=== PATIENT | male | born 1935 | race Caucasian/White ===

== ENCOUNTER 2020-03-03 19:01 | Inpatient (IN) | payer BC ==
[~2020-03-03] VITALS: Ht 167.6 cm; Wt 55.4 kg
[~2020-03-03 19:01] MED LIST: NITROFURANTOIN100 M2 ORAL
[2020-03-03 19:03] VITALS: BP 134/70
--- NOTE | 2020-03-03 19:03 | NUR ---
ED Nurse Note: Patient brought in by ambulance from home with complaitns of recent frequent falls. Patient notes decreased apetite and difficulty standing up. Patient lives with at home.
--- NOTE | 2020-03-03 19:23 | NUR ---
ED Nurse Note: IV started at left AC 20G. Blood specimen collected and sent to lab. Will continue to monitor.
--- NOTE | 2020-03-03 19:27 | Emergency Room Report ---
History of Present Illness General Chief Complaint: Generalized Weakness Source: Patient Present Illness HPI 85-year-old male presents for generalized weakness. Patient states for the past week he has been unable to complete his ADLs unable to walk around his house. He reports that his appetite has been decreased. He denied any fever but was febrile on EMS arrival. They report that his apartment was warm. Patient does report thirst on arrival. Patient was seen last week for urinary retention and had Ureña catheter placed. Patient denies any pain on arrival. Allergies: Coded Allergies: No Known Allergies (Unverified , 02/24/20) COVID-19 Screening Contact w/high risk pt: No Recent Travel to affected area: No Experienced COVID-19 symptoms?: Yes COVID-19 symptoms experienced: Fever (T>100.4F or >38C) COVID-19 Testing performed PEDIATRIC NURSE PRACTITIONER: No Patient History Reviewed Nursing Documentation: PMH: Agreed; PSxH: Agreed Review of Systems All Other Systems: negative except mentioned in HPI Physical Exam Vital Signs Date Time Temp Pulse Resp B/P (MAP) Pulse Ox O2 Delivery O2 Flow Rate FiO2 03/03/20 18:54 97.9 90 18 134/70 (91) 98 Room Air Sp02 EP Interpretation: reviewed, normal General Appearance: no apparent distress, cachetic, thin Head: normocephalic, atraumatic Eyes: bilateral eye PERRL, bilateral eye EOMI ENT: hearing grossly normal, dry mucus membranes Neck: full range of motion, supple Respiratory: lungs clear, normal breath sounds, no rhonchi, no respiratory distress, no retraction, no wheezing Cardiovascular #1: normal peripheral pulses, regular rate, rhythm, no murmur Gastrointestinal: non tender, soft, non-distended, no guarding Neurologic: alert, oriented x3, no focal defects Skin: normal color, warm/dry Medical Decision Making ER Course 85-year-old male presents for generalized weakness. Differential included but not limited to failure to thrive, dehydration, heat exhaustion, urinary tract infection, other infectious process to name a few. On exam patient was alert and oriented with no focal neurologic deficits. Septic work-up initiated, IV fluids given. Last Vital Signs Date Time Temp Pulse Resp B/P (MAP) Pulse Ox O2 Delivery O2 Flow Rate FiO2 03/03/20 18:54 97.9 90 18 134/70 (91) 98 Room Air Disposition: ADMITTED INPATIENT Condition: Serious Referrals: NON PHYSICIAN (PCP) Jonh Fuentes M.D. March 03, 2020 19:27
[2020-03-03 19:40] LABS: BASOPHILS % (AUTO) 0.8 % (0.0-2.0); HEMATOCRIT 44.4 % (42.0-52.0); HEMOGLOBIN 14.6 G/DL (14.2-18.0); LYMPHOCYTES % (AUTO) 11.8 % (20.0-45.0); MEAN CORPUSCULAR VOLUME 100 FL (80-99); MONOCYTES % (AUTO) 9.6 % (1.0-10.0); NEUTROPHILS % (AUTO) 77.8 % (45.0-75.0); PLATELET COUNT 166 K/UL (150-450); RED BLOOD COUNT 4.42 M/UL (4.70-6.10); RED CELL DISTRIBUTION WIDTH 12.2 % (11.6-14.8); WHITE BLOOD COUNT 10.2 K/UL (4.8-10.8)
[2020-03-03 19:54] LABS: ANION GAP 10 mmol/L (5-15); BLOOD UREA NITROGEN 55 mg/dL (7-18); CALCIUM 8.9 MG/DL (8.5-10.1); CARBON DIOXIDE 25 MMOL/L (21-32); CHLORIDE 103 MMOL/L (98-107); CREATININE 2.1 MG/DL (0.55-1.30); POTASSIUM 3.8 MMOL/L (3.5-5.1); SODIUM 138 MMOL/L (136-145)
[2020-03-03 20:07] LABS: ALANINE AMINOTRANSFERASE 46 U/L (12-78); ALBUMIN 2.9 G/DL (3.4-5.0); ALBUMIN/GLOBULIN RATIO 0.6 (1.0-2.7); ALKALINE PHOSPHATASE 63 U/L (46-116); ASPARTATE AMINO TRANSFERASE 73 U/L (15-37); BILIRUBIN,TOTAL 0.7 MG/DL (0.2-1.0); CKMB < 0.5 NG/ML (0.0-3.6); CREATINE KINASE 165 U/L (26-308)
--- NOTE | 2020-03-03 21:01 | NUR ---
ED Nurse Note: IV at left AC in dependent position. IV fluids still running, will draw reflex as soon as patient received 1700ml of N/S.
--- NOTE | 2020-03-03 21:09 | NUR ---
ED Nurse Note: Spoke with patient's daughter, Tita, maxiom. Relayed plan of care. Contact for daughter: FLORINA#: [phone]
[2020-03-03 21:14] LABS: APPEARANCE,URINE VERY CLOUDY; BILIRUBIN, URINE NEGATIVE (NEGATIVE); COLOR,URINE AMBER; GLUCOSE, URINE (UA) NEGATIVE (NEGATIVE); KETONES,URINE NEGATIVE (NEGATIVE); LEUKOCYTE ESTERASE ,URINE 3+ (NEGATIVE); NITRITE,URINE NEGATIVE (NEGATIVE); PH,URINE 5 (4.5-8.0); PROTEIN,URINE 3+ (NEGATIVE); UROBILINOGEN,URINE NORMAL MG/DL (0.0-1.0)
[2020-03-03] MEDS ORDERED: cefTRIAXone 1 GM in NS 55 ML IVPB ONE (21:45)
--- NOTE | 2020-03-03 21:49 | NUR ---
ED Nurse Note: IV atnibiotic hung. IV N/S 600cc to completion of order.
[2020-03-03] MEDS ORDERED: Milk of Magnesia 30ml Ud ORAL PRN (22:30)
--- NOTE | 2020-03-03 22:48 | NUR ---
ED Nurse Note: Called report into Dee Deea RN.
--- NOTE | 2020-03-03 22:50 | NUR ---
ED Nurse Note: Patient belongings sheet completed. Patient able to sign. No valuables, only clothing.
--- NOTE | 2020-03-03 22:50 | NUR ---
NURSE NOTES: Received ED report from HARITHA Goldberg. Pt transported via stretcher. pt is AAOX3, some forgetfulness noted, pt is cooperative and responds appropriately to assessment questions. c/o generalized weakness and generalized body aches and fatigue. Admitted from home w/ le cath in place. pt stated had the le cath changed 5 days ago prior to coming to ED by his [facility] nurse that regularly visits through [facility] service. ER nurse changed urinary bag upon arrival to ED. IV to RAC intact/clean. will f/u IVF and scheduled Zosyn. oriented to room, call light provided, bed alarm on. Instructed to call for assistance anytime. VSS
--- NOTE | 2020-03-03 22:52 | NUR ---
ED Nurse Note: Patient transported to floor without incident by electronics tech.
[2020-03-03 23:11] VITALS: BP 134/84
[2020-03-03] MEDS: Piperacillin/Tazobactam 3.375 GM in NS 110 ML IVPB SCH (23:42)
[2020-03-04 04:00] VITALS: BP 108/67
[2020-03-04] MEDS: Piperacillin/Tazobactam 3.375 GM in NS 110 ML IVPB SCH ×3 (06:14→22:36)
[2020-03-04 06:46] LABS: ANION GAP 11 mmol/L (5-15); BASOPHILS % (AUTO) 0.5 % (0.0-2.0); BLOOD UREA NITROGEN 48 mg/dL (7-18); CALCIUM 7.9 MG/DL (8.5-10.1); CARBON DIOXIDE 22 MMOL/L (21-32); CHLORIDE 107 MMOL/L (98-107); CREATININE 1.7 MG/DL (0.55-1.30); EOSINOPHILS % (AUTO) 0.1 % (0.0-3.0); HEMATOCRIT 36.5 % (42.0-52.0); HEMOGLOBIN 13.4 G/DL (14.2-18.0); LYMPHOCYTES % (AUTO) 14.9 % (20.0-45.0); MEAN CORPUSCULAR VOLUME 93 FL (80-99); NEUTROPHILS % (AUTO) 76.5 % (45.0-75.0); PLATELET COUNT 118 K/UL (150-450); POTASSIUM 3.3 MMOL/L (3.5-5.1); RED BLOOD COUNT 3.92 M/UL (4.70-6.10); RED CELL DISTRIBUTION WIDTH 10.9 % (11.6-14.8); SODIUM 140 MMOL/L (136-145); WHITE BLOOD COUNT 9.6 K/UL (4.8-10.8)
[2020-03-04 06:51] LABS: ALANINE AMINOTRANSFERASE 37 U/L (12-78); ALBUMIN 2.2 G/DL (3.4-5.0); ALBUMIN/GLOBULIN RATIO 0.6 (1.0-2.7); ALKALINE PHOSPHATASE 51 U/L (46-116); ASPARTATE AMINO TRANSFERASE 62 U/L (15-37); BILIRUBIN,TOTAL 0.7 MG/DL (0.2-1.0)
--- NOTE | 2020-03-04 07:31 | NUR ---
NURSE NOTES: Patient is in bed awake and able to verbalize needs. Stable. Denies pain or SOB. Patient instructed to use call light for assistance, verbalized understanding. Patient is in bed in locked and lowest position with call light within reach and bed alarm on. Will continue to monitor.
--- NOTE | 2020-03-04 07:37 | NUR ---
NURSE NOTES: Spoke to Dr. Monroe regarding giving heparin for decreased platelet count, Dr. Monroe gave ok to give heparin. Dr. Monroe also told RN not to change le catheter. Will continue to monitor.
--- NOTE | 2020-03-04 07:40 | NUR ---
HAND-OFF: Report given to HARITHA Galloway.
[2020-03-04 08:00] VITALS: BP 110/71
--- NOTE | 2020-03-04 08:30 | NUR ---
NURSE NOTES: RN spoke to Dr. Bullock regarding urology consult, Dr. Bullock will be in to see patient. Urology cart is at bedside.
[2020-03-04] MEDS: Heparin 5000 units/ml inj SUBQ SCH ×2 (08:37→21:49)
--- NOTE | 2020-03-04 09:07 | NUR ---
NURSE NOTES: US being done at bedside.
--- NOTE | 2020-03-04 09:15 | History and Physical Report ---
DATE OF ADMISSION: 03/03/2020 CHIEF COMPLAINT: Failure to thrive, weakness, UTI. HISTORY OF PRESENT ILLNESS: The patient is an 85-year-old male. He has a prior history of BPH, has had several prior prostate surgeries. 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 He presented because he felt weak for the last several days to the point where he is crawling on the floor. He had not eaten for four days. On evaluation in the emergency room, he was in mild acute renal failure. He had evidence of urinary tract infection. He was started on broad-spectrum IV antibiotics and hydration and is now admitted for further evaluation and care. PAST MEDICAL HISTORY: As above. PAST SURGICAL HISTORY: Includes prostate surgery. CURRENT MEDICATIONS: None. FAMILY HISTORY: None. SOCIAL HISTORY: The patient denies tobacco, ethanol, or drugs. The patient resides at home with his ex-. REVIEW OF SYSTEMS: GENERAL: Positive malaise, weakness. No night sweats. HEENT: No headaches or visual changes. CARDIOPULMONARY: No chest pain or shortness of breath. GASTROINTESTINAL: No nausea or vomiting. Positive anorexia. No melena. No bright red blood per rectum. GENITOURINARY: Positive history of chronic indwelling Ureña catheter. MUSCULOSKELETAL: No joint pain or swelling. NEUROLOGIC: No history of seizures. Positive generalized weakness and malaise. SKIN: No rash. PHYSICAL EXAMINATION: VITAL SIGNS: Temperature 97.6, pulse 65, respirations 16, blood pressure 108/67. GENERAL: The patient is a thin male, in no apparent distress. He is somewhat anxious and tearful. LABORATORY DATA: Sodium 138, potassium 3.8, chloride 103, BUN 55, creatinine was 2.1. Lactic acid level was 3. UA showed too numerous to count wbc's. 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 PLAN: IV antibiotics. Follow up cultures. Continue Ureña. and ID consultations. Gentle hydration. PT and OT evaluations. The patient likely need placement in a SNF. Plan of care has been discussed with the patient's daughter. Roque Monroe M.D. DR: RAE JOB#: [id number] CC:
--- NOTE | 2020-03-04 11:35 | CDS Physician Query ---
Clarification is required for compliance, coding accuracy, and to reflect severity of illness for this patient Dear Dr. Monroe Date: 03/04/20 CDS Name: London Jeff Patient is admitted with Sepsis, UTI, NIKKIE. 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 Please specify the relationship between chronic indwelling catheter and UTI and sepsis: [ ] Sepsis due to chronic indwelling catheter [ ] UTI due to chronic indwelling catheter [ ] Sepsis and UTI both due to chronic indwelling catheter [ ] Sepsis or/and UTI unrelated to chronic indwelling catheter [ ] Other: [ ] Clinically undetermined Physician signature Date Please also document in your Progress Notes and/or Discharge Summary and indicate if the condition was present on admission MTDD
--- NOTE | 2020-03-04 11:53 | NUR ---
RD ASSESSMENT & RECOMMENDATIONS SEE CARE ACTIVITY FOR COMPLETE ASSESSMENT DAILY ESTIMATED NEEDS: Needs based on Sepsis/ 56.5kg 25-30 kcals/kg 4685-7952 total kcals 1-2 g protein/kg 56-112 g total protein 25-30 mL/kg 0301-2284 total fluid mLs NUTRITION DIAGNOSIS: * Altered nutrition related lab values R/T hyperglycemia, clinical condition as evidenced by elev BGs (135 206) CURRENT DIET:REGULAR, kosher PO DIET RECOMMENDATIONS: Liberalized REGULAR, KOSHER (Texture as tolerated) ADDITIONAL RECOMMENDATIONS: * Calibrated bedscale wt for accurate CBW * Check A1C: elev BGs * 8oz regular milk TID w/ meals (150kcal, 8g protein) -> pt refused HPN like Ensure/Glucerna * Monitor BGs, need for carb controlled diet/ hypoglycemics * Monitor PO intake closely: FTT dx, consider robson count x 48 hrs * MVI x 1 as supplement
--- NOTE | 2020-03-04 11:55 | NUR ---
NURSE NOTES: Reported preliminary report of gram negative cari blood cultures to Dr. Monroe. No new orders at this time. Will continue to monitor.
[2020-03-04 12:00] VITALS: BP 117/66
--- NOTE | 2020-03-04 12:07 | NUR ---
*-* DISCHARGE PLANNING *-* ALL AVAILABLE CLINICALS HAVE BEEN FAXED TO: [facility] P: [phone] F: [phone] (FAX CLINICALS) & BS TRACKING ONLY/ DELEGATED TO [facility] F: [phone] (FAX CLINICALS)
--- NOTE | 2020-03-04 12:13 | NUR ---
*-* INSURANCE *-* ALL AVAILABLE CLINICALS HAVE BEEN FAXED TO: [facility] P: [phone] F: [phone] (FAX CLINICALS) & BS TRACKING ONLY/ DELEGATED TO [facility] F: [phone] (FAX CLINICALS)
--- NOTE | 2020-03-04 12:30 | NUR ---
NURSE NOTES: Wrong timing on emar for tylenol administration. Tylenol 650mg PO given for temperature 101.7 at 12:30pm. Reassessment done at 13:00pm for temperature 98.7. Patient is stable. Cooling measures provided.
--- NOTE | 2020-03-04 13:01 | NUR ---
ART MODEL NOTE SW received notification that pt may have social science professor concern. SW met w/ pt to assess pt's needs. Pt presents as A&O 3-4x and cooperative. Pt resides w/ his partner at [address] [address]. Pt reports he resides on the 2nd floor and the building does not have elevator. Pt has one adult daughter and the emergency contact is Anita Ibarra [phone], cell [phone]. PT also reports he does have a cane and walker but such DMEs no longer helps him to ambulate. Pt shares he agreed to go to [facility] upon DC. Pt did not share any further concern.
--- NOTE | 2020-03-04 15:18 | NUR ---
P.T Note: P.T evaluation completed and tx initiated. Please refer to P.T evaluation for current functional status and recommendation.
--- NOTE | 2020-03-04 15:49 | NUR ---
P.T Note: P.T evaluation completed and tx initiated. Pt presented generalized weakness and poor activity tolerance. Pt currently require MIN A x 1 for bed mobilities and MOD A X 1 for transfer. Pt was only able to stand using the FWW however too weak to ambulate. Pt will benefit from skilled P.T to improve strength, balance and endurance to increase mobility independence and safety. Recommend SNF for short term rehab VS Home P.T at [place]. Addendum: 03/04/20 at 1549 by [facility] PT Amended: Links added.
[2020-03-04 16:00] VITALS: BP 111/60
--- NOTE | 2020-03-04 16:34 | NUR ---
CASE MANAGEMENT: INITIAL REVIEW 85YR OLD MALE BIBA FROM HOME CC: GENERALIZED WEAKNESS; FEVER SI: FAILURE TO THRIVE . GENERALIZED WEAKNESS . UTI 97.8 98 18 134/70 98% ON RA BUN\CREAT 55/2.1 BG 206 LACTIC ACID 3.0 IS: IVF NS BOLUS X2 IV ROCEPHIN X1 IV ZOSYN X1 TYLENOL X1 \: 3E MED SURG UNIT DCP: HOME WHEN STABLE VS SNF PLAN: HYDRATE START ON IV ABX CASE MANAGEMENT: REVIEW 03/04/20 SI: FAILURE TO THRIVE . GENERALIZED WEAKNESS . UTI 101.8 89 16 117/66 92% ON RA BUN\CREAT 48/1.7 BG 135 CA+7.9 PLT 118 IS: IVF NS @75ML/HR IV ZOSYN TID TYLENOL PO Q4/PRN HEPARIN SQ BID \: 3E MED SURG UNIT DCP: HOME WHEN STABLE VS SNF PLAN: CONT TO HYDRATE CONT IV ABX PT/OT EVAL AND THERAPY
--- NOTE | 2020-03-04 19:40 | NUR ---
NURSE NOTES: Patient had large bm. Patient cleaned and given saadia care.
--- NOTE | 2020-03-04 19:59 | General Progress Note ---
Assessment/Plan Problem List: (1) Bacteremia due to Gram-negative bacteria ICD Codes: R78.81 - Bacteremia SNOMED: 083819992040 (2) Toxic metabolic encephalopathy ICD Codes: G92 - Toxic encephalopathy SNOMED: 199660829 (3) Acute urinary retention ICD Codes: R33.8 - Other retention of urine SNOMED: 080218020 (4) Episode of generalized weakness ICD Codes: R53.1 - Weakness SNOMED: 88927002 (5) Failure to thrive SNOMED: 06458194 Status: stable, progressing Assessment/Plan: cont iv abx follow up cultures cont le and ID eval check echo follow up renal US will likely need snf Subjective ROS Limited/Unobtainable: No Constitutional: Reports: malaise, weakness HEENT: Reports: no symptoms Cardiovascular: Reports: no symptoms Respiratory: Reports: no symptoms Gastrointestinal/Abdominal: Reports: abdominal pain Genitourinary: Reports: pain, urgency Neurologic/Psychiatric: Reports: anxiety, depressed, pre-existing deficit Endocrine: Reports: no symptoms Hematologic/Lymphatic: Reports: no symptoms Allergies: Coded Allergies: No Known Allergies (Unverified , 02/24/20) All Systems: reviewed and negative except above Subjective no events. w/o complaints. still very confused. +blood cultures. appreciated. Cr trending down. Objective Last 24 Hour Vital Signs Date Time Temp Pulse Resp B/P (MAP) Pulse Ox O2 Delivery O2 Flow Rate FiO2 03/04/20 16:00 96.7 70 16 111/60 (77) 97 03/04/20 13:17 98.7 03/04/20 13:04 98.7 03/04/20 12:00 101.8 89 16 117/66 (83) 92 03/04/20 08:43 Room Air 03/04/20 08:00 98.5 66 16 110/71 (84) 96 03/04/20 04:00 97.6 65 16 108/67 (81) 96 03/04/20 00:00 Room Air 03/03/20 23:11 100.1 86 18 134/84 (101) 96 03/03/20 23:00 Room Air 03/03/20 22:52 97.9 18 134/70 98 Room Air Intake and Output 03/03/20 03/04/20 19:00 07:00 Intake Total 1150.0 ml Output Total 750 ml Balance 400.0 ml Intake Oral 0 ml IV Total 710.0 ml Other 440 ml Output Urine Total 750 ml Laboratory Tests 03/03/20 21:08: Urine Color Catalina, Urine Appearance Very cloudy, Urine pH 5, Urine Specific Carrier 1.015, Urine Protein 3+H, Urine Glucose (UA) Negative, Urine Ketones Negative, Urine Blood 5+H, Urine Nitrite Negative, Urine Bilirubin Negative, Urine Ictotest Negative, Urine Urobilinogen Normal, Urine Leukocyte Esterase 3+H , Urine RBC 15-20H, Urine WBC TntcH, Urine Squamous Epithelial Cells Few, Urine Bacteria ManyH 03/03/20 22:11: Lactic Acid Level 1.80 03/04/20 04:50: White Blood Count 9.6, Red Blood Count 3.92L, Hemoglobin 13.4L, Hematocrit 36.5L , Mean Corpuscular Volume 93, Mean Corpuscular Hemoglobin 34.1H, Mean Corpuscular Hemoglobin Concent 36.6H, Red Cell Distribution Width 10.9L, Platelet Count 118L, Mean Platelet Volume 6.2L, Neutrophils (%) (Auto) 76.5H, Lymphocytes (%) (Auto) 14.9L, Monocytes (%) (Auto) 8.0, Eosinophils (%) (Auto) 0.1, Basophils (%) (Auto) 0.5, Sodium Level 140, Potassium Level 3.3L, Chloride Level 107, Carbon Dioxide Level 22, Anion Gap 11, Blood Urea Nitrogen 48H, Creatinine 1.7H, Estimat Glomerular Filtration Rate 38.4, Glucose Level 135H, Calcium Level 7.9L, Total Bilirubin 0.7, Aspartate Amino Transf (AST/SGOT) 62H, Alanine Aminotransferase (ALT/SGPT) 37, Alkaline Phosphatase 51, Total Protein 6.1L, Albumin 2.2L, Globulin 3.9, Albumin/Globulin Ratio 0.6L Height (Feet): 5 Height (Inches): 6.00 Weight (Pounds): 124 General Appearance: WD/WN, alert, confused EENT: PERRL/EOMI, normal ENT inspection Neck: non-tender, normal alignment, supple Cardiovascular: normal peripheral pulses, normal rate Respiratory/Chest: chest wall non-tender, lungs clear, normal breath sounds, no respiratory distress, no accessory muscle use Abdomen: normal bowel sounds, non tender, soft, no organomegaly, no mass Extremities: normal range of motion Edema: no edema noted Arm (L), no edema noted Arm (R), no edema noted Leg (L), no edema noted Leg (R), no edema noted Pedal (L), no edema noted Pedal (R), no edema noted Generalized Edema: trace edema Neurologic: bear keeper II-XII grossly normal, alert, responsive, disoriented Skin: normal pigmentation Roque Monroe MD March 04, 2020 19:59
--- NOTE | 2020-03-04 19:59 | NUR ---
HAND-OFF: Report given to Bethany MG. Patient is stable.
[2020-03-04 20:00] VITALS: BP 118/68
--- NOTE | 2020-03-04 20:14 | NUR ---
NURSE NOTES: Received report from Laverne RN, rounds made pt stable no s/s of respiratory distress on RA. Pt denies any pain, IV site on L fore arm 22g with IVF, patent asymptomatic , Ureña catheter anchored and draining clear yellow , bed in low locked position call light with in reach, will continue with plan of care
[2020-03-05] VITALS: BP 127/88
[2020-03-05 04:00] VITALS: BP 104/67
[2020-03-05] MEDS: Piperacillin/Tazobactam 3.375 GM in NS 110 ML IVPB SCH ×3 (05:11→22:01)
[2020-03-05 06:59] LABS: ALANINE AMINOTRANSFERASE 40 U/L (12-78); ALBUMIN/GLOBULIN RATIO 0.6 (1.0-2.7); ALKALINE PHOSPHATASE 58 U/L (46-116); ANION GAP 12 mmol/L (5-15); ASPARTATE AMINO TRANSFERASE 51 U/L (15-37); BILIRUBIN,TOTAL 0.7 MG/DL (0.2-1.0); BLOOD UREA NITROGEN 35 mg/dL (7-18); CALCIUM 8.1 MG/DL (8.5-10.1); CARBON DIOXIDE 21 MMOL/L (21-32); CHLORIDE 109 MMOL/L (98-107); CREATININE 1.5 MG/DL (0.55-1.30); POTASSIUM 3.7 MMOL/L (3.5-5.1); SODIUM 142 MMOL/L (136-145)
--- NOTE | 2020-03-05 06:59 | Consultation ---
DATE OF CONSULTATION: 03/04/2020 CONSULTING PHYSICIAN: Gibran Bullock MD. REFERRING PHYSICIAN: Roque Monroe MD. REASON FOR CONSULTATION: For evaluation of chronic Ureña. HISTORY OF PRESENT ILLNESS: This is an 85-year-old male. He has a history of BPH and history of neurogenic bladder. He has a history of chronic Ureña. He was admitted to the hospital because of failure to thrive and weakness and UTI. Urology evaluation requested. He has a Ureña catheter in place now. He has been followed by and Dr. Gsapar on the as an outpatient. I did speak with and apparently the patient does have a history of BPH, urinary retention, chronic Ureña, there was a questionable urethral stricture. Apparently, he had a recent voiding trial and he was not able to void and he went to the emergency room at [facility] and a Ureña catheter was placed on 02/25/2020. PAST MEDICAL HISTORY: Significant for above. PAST SURGICAL HISTORY: He has had some sort of prostate surgery in the past, details are unknown. MEDICATIONS: Current medication list in the hospital was reviewed. ALLERGIES: No known drug allergies. SOCIAL HISTORY: The patient is a nonsmoker. REVIEW OF SYSTEMS: As above. FAMILY HISTORY: Noncontributory. PHYSICAL EXAMINATION: GENERAL: Elderly male, in no acute distress. Slightly cachectic. VITAL SIGNS: Temperature 96.7, blood pressure 110/60. ABDOMEN: Soft. GENITOURINARY: No CVA tenderness. Ureña catheter is in place. This is 14-Cypriot. Urine is yellow. LABORATORY DATA: UA showed 3+ protein, 15 to 20 rbc's, too numerous to count wbc's, many bacteria. White count is 9.6, hemoglobin 13.4, platelets are 118. BUN is 48, creatinine is 1.7. He did have a creatinine of 2.1 yesterday. Baseline creatinine is unknown to me. DIAGNOSTIC IMAGING STUDIES: None here. IMPRESSION: 1. Urinary retention. 2. BPH. 3. Neurogenic bladder. 4. Hematuria. 5. Pyuria. 6. Proteinuria. 7. Renal insufficiency acute on chronic. 8. Questionable history of urethral stricture. PLAN AND DISCUSSION: Again the patient has a chronic Ureña. Apparently, he has failed multiple voiding trials as an outpatient and is to continue with the Ureña catheter indwelling. The existing Ureña has been in for about 8 days and as such, at this time it does not necessarily need to be exchanged. The patient appears to be comfortable with it. It is a small size catheter 14-Cypriot. The patient states that is what he prefers although I did recommend a larger size Ureña for his next catheter change. He has colonized urine. He is on antibiotics and I will follow up on the results of any cultures. I will also add finasteride to minimize prostatic bleeding. Thank you for this consultation. Gibran Bullock M.D. DR: JEREMÍAS JOB#: [id number] CC:
--- NOTE | 2020-03-05 07:11 | General Progress Note ---
Assessment/Plan Problem List: (1) Bacteremia due to Gram-negative bacteria ICD Codes: R78.81 - Bacteremia SNOMED: 513701325088 (2) Toxic metabolic encephalopathy ICD Codes: G92 - Toxic encephalopathy SNOMED: 770022067 (3) Acute urinary retention ICD Codes: R33.8 - Other retention of urine SNOMED: 886707446 (4) Episode of generalized weakness ICD Codes: R53.1 - Weakness SNOMED: 36848267 (5) Failure to thrive SNOMED: 68794166 Status: stable, progressing Assessment/Plan: cont iv abx follow up cultures cont le and ID eval apperciated check echo follow up renal US monitor renal fxn/labs will likely need snf Subjective ROS Limited/Unobtainable: No Constitutional: Reports: malaise, weakness HEENT: Reports: no symptoms Cardiovascular: Reports: no symptoms Respiratory: Reports: no symptoms Gastrointestinal/Abdominal: Reports: no symptoms Genitourinary: Reports: no symptoms Neurologic/Psychiatric: Reports: anxiety, emotional problems, pre-existing deficit Endocrine: Reports: no symptoms Hematologic/Lymphatic: Reports: anemia Allergies: Coded Allergies: No Known Allergies (Unverified , 02/24/20) All Systems: reviewed and negative except above Subjective confused. GNR in blod and urine. appreciated. eating breakfast, no/cp or sob. has chronic indwelling cath. Per no need to change as recently changed. on iv abx. Objective Last 24 Hour Vital Signs Date Time Temp Pulse Resp B/P (MAP) Pulse Ox O2 Delivery O2 Flow Rate FiO2 03/05/20 04:00 98.5 76 19 104/67 (79) 96 03/05/20 00:00 98.5 75 19 127/88 (101) 97 03/04/20 21:00 Room Air 03/04/20 20:00 98.1 77 19 118/68 (85) 96 03/04/20 16:00 96.7 70 16 111/60 (77) 97 03/04/20 13:17 98.7 03/04/20 13:04 98.7 03/04/20 12:00 101.8 89 16 117/66 (83) 92 03/04/20 08:43 Room Air 03/04/20 08:00 98.5 66 16 110/71 (84) 96 Intake and Output 03/04/20 03/05/20 19:00 07:00 Output Total 700 ml Balance -700 ml Output Urine Total 700 ml Laboratory Tests 03/05/20 05:40: White Blood Count [Pending], Red Blood Count [Pending], Hemoglobin [Pending], Hematocrit [Pending], Mean Corpuscular Volume [Pending], Mean Corpuscular Hemoglobin [Pending], Mean Corpuscular Hemoglobin Concent [Pending], Red Cell Distribution Width [Pending], Platelet Count [Pending], Mean Platelet Volume [ Pending], Neutrophils (%) (Auto) [Pending], Lymphocytes (%) (Auto) [Pending], Monocytes (%) (Auto) [Pending], Eosinophils (%) (Auto) [Pending], Basophils (%) (Auto) [Pending], Sodium Level 142, Potassium Level 3.7, Chloride Level 109H, Carbon Dioxide Level 21, Anion Gap 12, Blood Urea Nitrogen 35H, Creatinine 1.5H , Estimat Glomerular Filtration Rate 44.4, Glucose Level 102, Calcium Level 8.1L , Total Bilirubin 0.7, Aspartate Amino Transf (AST/SGOT) 51H, Alanine Aminotransferase (ALT/SGPT) 40, Alkaline Phosphatase 58, Pro-B-Type Natriuretic Peptide 1056H, Total Protein 5.6L, Albumin 2.0L, Globulin 3.6, Albumin/Globulin Ratio 0.6L Height (Feet): 5 Height (Inches): 6.00 Weight (Pounds): 124 General Appearance: WD/WN, alert, confused EENT: PERRL/EOMI, normal ENT inspection Neck: non-tender, normal alignment, supple Cardiovascular: normal peripheral pulses, normal rate, regular rhythm Respiratory/Chest: chest wall non-tender, lungs clear, normal breath sounds, no respiratory distress, no accessory muscle use Abdomen: normal bowel sounds, non tender, soft, no organomegaly Edema: no edema noted Arm (L), no edema noted Arm (R), no edema noted Leg (L), no edema noted Leg (R), no edema noted Pedal (L), no edema noted Pedal (R), no edema noted Generalized Neurologic: field agent II-XII grossly normal, alert, disoriented Skin: normal pigmentation Roque Monroe MD March 05, 2020 07:11
[2020-03-05 07:31] LABS: BASOPHILS % (AUTO) 0.9 % (0.0-2.0); EOSINOPHILS % (AUTO) 0.6 % (0.0-3.0); HEMATOCRIT 34.2 % (42.0-52.0); HEMOGLOBIN 12.3 G/DL (14.2-18.0); LYMPHOCYTES % (AUTO) 16.1 % (20.0-45.0); MEAN CORPUSCULAR VOLUME 94 FL (80-99); MONOCYTES % (AUTO) 8.4 % (1.0-10.0); NEUTROPHILS % (AUTO) 73.9 % (45.0-75.0); PLATELET COUNT 120 K/UL (150-450); RED BLOOD COUNT 3.62 M/UL (4.70-6.10); RED CELL DISTRIBUTION WIDTH 10.8 % (11.6-14.8); WHITE BLOOD COUNT 9.1 K/UL (4.8-10.8)
--- NOTE | 2020-03-05 07:47 | NUR ---
HAND-OFF: Report given to Jeanie MG, pt stable .
--- NOTE | 2020-03-05 07:49 | NUR ---
NURSE NOTES: Received report. Patient stable, AOx3 eating breakfast at this time. Ureña catheters appear to be draining well to gravity. Side rails upx2, call light within reach, bed low and locked. Will continue to monitor.
[2020-03-05 08:00] VITALS: BP 105/61
--- NOTE | 2020-03-05 09:06 | Urology Progress Note ---
Assessment/Plan Status: stable, progressing Assessment/Plan: 1. Urinary retention. 2. BPH. 3. Neurogenic bladder. 4. Hematuria. 5. Pyuria/UTI/colonized. 6. Proteinuria. 7. Renal insufficiency acute on chronic. 8. Questionable history of urethral stricture. 9. Renal cyst. monitor clinically maintain le, last placed 02/24 by report hand irrigated and do PRN abx as ordered f/u on cx's cysto later Subjective Allergies: Coded Allergies: No Known Allergies (Unverified , 02/24/20) Subjective all noted, looks comfortable Objective Last 24 Hour Vital Signs Date Time Temp Pulse Resp B/P (MAP) Pulse Ox O2 Delivery O2 Flow Rate FiO2 03/05/20 08:00 97.6 70 18 105/61 (76) 98 03/05/20 04:00 98.5 76 19 104/67 (79) 96 03/05/20 00:00 98.5 75 19 127/88 (101) 97 03/04/20 21:00 Room Air 03/04/20 20:00 98.1 77 19 118/68 (85) 96 03/04/20 16:00 96.7 70 16 111/60 (77) 97 03/04/20 13:17 98.7 03/04/20 13:04 98.7 03/04/20 12:00 101.8 89 16 117/66 (83) 92 Intake and Output 03/04/20 03/05/20 19:00 07:00 Output Total 700 ml Balance -700 ml Output Urine Total 700 ml Microbiology Date/Time Source Procedure Growth Status 03/03/20 19:23 Blood Blood Culture - Preliminary Gram Negative Marcos Resulted 03/03/20 21:08 Urine,Clean Catch Urine Culture - Preliminary Gram Negative Marcos Resulted Current Medications Medications (Trade) Dose Ordered Sig/Eddi Route PRN Reason Start Time Stop Time Status Last Admin Dose Admin Acetaminophen (Tylenol) 650 mg Q4H PRN ORAL Pain Scale 1-3/T>100.5 03/04/20 13:00 04/02/20 12:59 03/04/20 13:05 Finasteride (Proscar) 5 mg DAILY ORAL 03/05/20 09:00 06/03/20 08:59 Heparin Sodium (Porcine) (Heparin 5000 units/ml) 5,000 units EVERY 12 HOURS SUBQ 03/04/20 09:00 04/18/20 08:59 03/04/20 21:49 Magnesium Hydroxide (Mom) 30 ml DAILYPRN PRN ORAL Constipation 03/03/20 22:30 04/02/20 22:29 Ondansetron HCl (Zofran) 4 mg Q6H PRN IVP Nausea & Vomiting 03/03/20 22:30 04/02/20 22:29 Piperacillin Sod/ Tazobactam Sod 3.375 gm/Sodium Chloride 110 ml @ 27.5 mls/hr EVERY 8 HOURS IVPB 03/04/20 00:00 03/11/20 00:00 03/05/20 05:11 Sodium Chloride 1,000 ml @ 75 mls/hr [id number] IV 03/03/20 22:30 04/02/20 22:29 03/05/20 00:44 Laboratory Tests 03/05/20 05:40: White Blood Count 9.1, Red Blood Count 3.62L, Hemoglobin 12.3L, Hematocrit 34.2L , Mean Corpuscular Volume 94, Mean Corpuscular Hemoglobin 34.0H, Mean Corpuscular Hemoglobin Concent 36.0, Red Cell Distribution Width 10.8L, Platelet Count 120L, Mean Platelet Volume 6.4L, Neutrophils (%) (Auto) 73.9, Lymphocytes (%) (Auto) 16.1L, Monocytes (%) (Auto) 8.4, Eosinophils (%) (Auto) 0.6, Basophils (%) (Auto) 0.9, Sodium Level 142, Potassium Level 3.7, Chloride Level 109H, Carbon Dioxide Level 21, Anion Gap 12, Blood Urea Nitrogen 35H, Creatinine 1.5H, Estimat Glomerular Filtration Rate 44.4, Glucose Level 102, Calcium Level 8.1L, Total Bilirubin 0.7, Aspartate Amino Transf (AST/SGOT) 51H, Alanine Aminotransferase (ALT/SGPT) 40, Alkaline Phosphatase 58, Pro-B-Type Natriuretic Peptide 1056H, Total Protein 5.6L, Albumin 2.0L, Globulin 3.6, Albumin/Globulin Ratio 0.6L Height (Feet): 5 Height (Inches): 6.00 Weight (Pounds): 124 Objective exam stable urine yellow, occasional debris renal u/s (03/04) noted Gibran Bullock MD March 05, 2020 09:06
[2020-03-05] MEDS: Heparin 5000 units/ml inj SUBQ SCH ×2 (09:20→21:00)
--- NOTE | 2020-03-05 10:21 | NUR ---
CASE MANAGEMENT: REVIEW 03/05/20 SI: FAILURE TO THRIVE . GENERALIZED WEAKNESS . UTI 98.5 76 19 104/67 96% ON RA BUN\CREAT 35/1.5 BNP 1056 PLT 120 ALB 2.0 IS: IVF NS @75ML/HR IV ZOSYN TID TYLENOL PO Q4/PRN HEPARIN SQ BID PROSCAR PO QD \: 3E MED SURG UNIT DCP: HOME WHEN STABLE PLAN: DC PLANNING WITH
--- NOTE | 2020-03-05 10:38 | NUR ---
DISCHARGE PLANNING PATIENT REFERRED TO [facility] ARCELIA GRAY T:[phone] F:[phone] CM WILL F/U WITH CRISTA FROM FACILITY ([facility]) HAVING TO MOVE PATIENT AROUND , BUT WILL LOOK FOR MALE BED NOW Addendum: 03/05/20 at 1545 by MIGDALIA SAMAYOA LVN NO BEDS AT THIS TIME POSSIBLE OVER WEEKEND
[2020-03-05 12:00] VITALS: BP 115/68
--- NOTE | 2020-03-05 12:30 | NUR ---
*-* INSURANCE *-* ALL AVAILABLE CLINICALS HAVE BEEN FAXED TO: JAM[facility]OR[facility] DELEGATED P: [phone] F: [phone] (FAX CLINICALS) & BS TRACKING ONLY/ DELEGATED TO JAMAR F: [phone] (FAX CLINICALS)
[2020-03-05 16:00] VITALS: BP 115/63
--- NOTE | 2020-03-05 16:19 | Diagnostic Imaging Report ---
Indication: Abdominal pain, limited LFTs Technique: Multiplanar grayscale and duplex Doppler evaluation of the abdomen Comparison: None Findings: Imaged portions of the pancreatic head grossly unremarkable. Body and tail not well seen. Liver is normal in size and contour. No focal hepatic mass lesion is appreciated sonographically. The main portal vein is patent with normal direction of flow. There is cholelithiasis. No gallbladder wall thickening or pericholecystic fluid.Sonographic Jang sign reported as negative. No intrahepatic biliary ductal dilatation appreciated. The common bile measures 5 mm diameter. Kidneys demonstrate normal echogenicity. There is no hydronephrosis or sonographically appreciable renal stone. There is a 2 cm simple appearing cyst in the left kidney. Spleen is normal in size and unremarkable in appearance. Aorta is calcified and slightly ectatic. 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 IMPRESSION: * Cholelithiasis. No sonographic evidence to suggest an acute cholecystitis. Sonographic Jang sign reported as negative. 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
--- NOTE | 2020-03-05 16:30 | Diagnostic Imaging Report ---
EXAM: ULTRASOUND US Renal Comp CLINICAL HISTORY: Abdominal pain. Impaired renal function. Evaluate for urinary retention. COMPARISON: None TECHNIQUE: Ultrasound examination of the kidneys includes grayscale images, and color and spectral doppler analysis. FINDINGS: The right kidney measures 11.7 x 5.1 x 4.6 cm and the left kidney measures 11 x 4.8 x 4.2 cm. Cortical thickness and echogenicity are within normal limits. There is no hydronephrosis or stone seen bilaterally. There is a cyst at the lower pole of the left kidney. Ureña catheter noted in the bladder. IMPRESSION: NO EVIDENCE OF OBSTRUCTIVE UROPATHY. LEFT RENAL CYST.
--- NOTE | 2020-03-05 16:30 | Diagnostic Imaging Report ---
Procedure: XRAY Chest 1v Reason for study: Reason For Exam: SOB Comparison films: None. FINDINGS: A single one view chest is obtained. Vascularity is normal. The lung jack are clear bilaterally. Cardiac and mediastinal silhouette are within normal limits. CP angles are sharp. The bony thorax appear unremarkable. IMPRESSION: NO ACUTE CARDIOPULMONARY DISEASE.
--- NOTE | 2020-03-05 17:44 | Consultation ---
DATE OF CONSULTATION: 03/05/2020 INFECTIOUS DISEASES CONSULTATION CONSULTING PHYSICIAN: Bill Ag MD. REFERRING PHYSICIAN: Roque Monroe MD. REASON FOR CONSULTATION: Urinary tract infection. HISTORY OF PRESENTING ILLNESS: This is an 85-year-old gentleman with history of benign prostatic hypertrophy, with history of surgeries, with chronic indwelling Ureña, who came in because he was not eating. He was found to have acute renal failure and urinary tract infection, and an Infectious Diseases consultation has been obtained for antibiotics. PAST MEDICAL HISTORY: History of benign prostatic hypertrophy, status post prostate surgery. SOCIAL HISTORY: No history of smoking, alcohol, or drug use. FAMILY HISTORY: Unknown. REVIEW OF SYSTEMS: Unable to obtain currently. MEDICATIONS: As an inpatient, he is on Proscar, Tylenol, subcu heparin, Zosyn, Zofran, and milk of magnesia. ALLERGIES: No known drug allergies. PHYSICAL EXAMINATION: VITAL SIGNS: Temperature 97.6, T-max of 101.8, pulse of 70, respiratory rate 18, blood pressure 105/61, O2 saturation of 98%. HEENT: Pupils equally reactive to light and accommodation. Mouth appears clean without thrush. NECK: Supple. No adenopathy. No JVD. CARDIOVASCULAR: Regular rate and rhythm. No murmurs. LUNGS: Clear to auscultation bilaterally. No crackles. No wheezes. ABDOMEN: Soft, nontender. No organomegaly. EXTREMITIES: No cyanosis. No clubbing. No edema. LABORATORY AND DIAGNOSTIC DATA: White count 9.1, hemoglobin 12.3, hematocrit 34.2, MCV 94, platelet count of 120,000; neutrophils of 73%. Sodium 142, potassium 3.7, chloride 109, bicarb 21, BUN 35, creatinine 1.5, glucose 102, calcium 8.1. Total bilirubin 0.7, AST 51, ALT 40, alkaline phosphatase 58. Beta-natriuretic peptide 1056. Troponin 0.007. Total protein 5.6. Albumin of 2. UA is showing too numerous to count white cells. Blood cultures growing gram-negative rods. Urine culture on 03/03/2020 is growing gram-negative rods. ASSESSMENT: This is an 85-year-old gentleman with history of benign prostatic hypertrophy, who comes in with weakness and is found to have. 1. Gram-negative sepsis probably secondary to urinary tract infection. 2. Gram-negative urinary tract infection. 3. Benign prostatic hypertrophy. 4. Renal failure, improving. PLAN: 1. Continue Zosyn. 2. We will order an ultrasound of abdomen. 3. We will follow up cultures and adjust antibiotics accordingly. I would like to thank, Dr. Monroe, for this consultation. Bill Ag M.D. DR: Celina JOB#: [id number] CC: Roque Monroe MD
--- NOTE | 2020-03-05 19:30 | NUR ---
NURSE NOTES: RECEIVED PATIENT FROM HARITHA ISRAEL. PATIENT IS AWAKE, AAOX3, ON ROOM AIR, NO ACUTE DISTRESS NOTED. ROGER PRESENT, INTACT AND PATENT, DRAINING WELL, YELLOW URINE NOTED. ROGER ANCHOR IN PLACE. IV ON LEFT AC INTACT AND PATENT RUNNING NS @75ML/HR. BED IS LOCKED AND LOW, BED ALARMS ACTIVE, SIDE RAILS UPX2, AND CALL LIGHT IS WITHIN REACH. WILL CONTINUE TO MONITOR.
[2020-03-05 20:00] VITALS: BP 117/78
--- NOTE | 2020-03-05 20:27 | NUR ---
HAND-OFF: Report given to Reyna RN. Patient stable. Plan of care endorsed.
[2020-03-06] VITALS: BP 126/82
--- NOTE | 2020-03-06 01:48 | NUR ---
nurse's notes: received call from [facility], patient is positive for ESBL blood; will relay to RN Renya.; contact precautions initiated.
[2020-03-06 04:00] VITALS: BP 115/61
[2020-03-06] MEDS: Piperacillin/Tazobactam 3.375 GM in NS 110 ML IVPB SCH (05:41)
--- NOTE | 2020-03-06 07:45 | NUR ---
HAND-OFF: Report given to HARITHA Rodriguez. Patient is in stable condition.
--- NOTE | 2020-03-06 07:46 | NUR ---
NURSE NOTES: Received patient in bed awake. No SOB or acute distress. IV line intact. FC intact, draining yellow colored urine. HOB elevated. Bed locked in lowest position. Instructed to call for assistance, call light within reach. Will continue plan of care.
[2020-03-06 08:00] VITALS: BP 121/67
[2020-03-06] MEDS: Heparin 5000 units/ml inj SUBQ SCH ×2 (09:00→20:38)
--- NOTE | 2020-03-06 09:30 | NUR ---
NURSE NOTES: IV line out, removed and reinserted to right forearm using g20. IVF infusing well.
--- NOTE | 2020-03-06 09:49 | General Progress Note ---
Assessment/Plan Problem List: (1) Bacteremia due to Gram-negative bacteria ICD Codes: R78.81 - Bacteremia SNOMED: 787598156447 (2) Toxic metabolic encephalopathy ICD Codes: G92 - Toxic encephalopathy SNOMED: 624411629 (3) Acute urinary retention ICD Codes: R33.8 - Other retention of urine SNOMED: 074234801 (4) Episode of generalized weakness ICD Codes: R53.1 - Weakness SNOMED: 50868059 (5) Failure to thrive SNOMED: 47627409 Status: stable, progressing Assessment/Plan: cont iv abx follow up cultures cont le and ID eval apperciated echo - no veg renal us- no hydro. +gallstones monitor renal fxn/labs will likely need snf Subjective ROS Limited/Unobtainable: No Constitutional: Reports: malaise, weakness HEENT: Reports: no symptoms Cardiovascular: Reports: no symptoms Respiratory: Reports: cough Gastrointestinal/Abdominal: Reports: poor appetite Genitourinary: Reports: no symptoms Neurologic/Psychiatric: Reports: weakness Endocrine: Reports: no symptoms Hematologic/Lymphatic: Reports: anemia Allergies: Coded Allergies: No Known Allergies (Unverified , 02/24/20) All Systems: reviewed and negative except above Subjective much less confused. appreciated. eating breakfast, no/cp or sob. has chronic indwelling cath. Per no need to change as recently changed. on iv abx. Objective Last 24 Hour Vital Signs Date Time Temp Pulse Resp B/P (MAP) Pulse Ox O2 Delivery O2 Flow Rate FiO2 03/06/20 08:00 98.7 58 20 121/67 (85) 97 03/06/20 04:00 98.8 64 18 115/61 (79) 98 03/06/20 00:00 99.0 70 20 126/82 (97) 99 03/05/20 21:00 Room Air 03/05/20 20:00 98.8 76 18 117/78 (91) 98 03/05/20 16:00 98.4 70 18 115/63 (80) 98 03/05/20 12:00 98.3 61 20 115/68 (84) 98 Intake and Output 03/05/20 03/06/20 19:00 07:00 Intake Total 1410.0 ml 907.5 ml Output Total 1400 ml 1100 ml Balance 10.0 ml -192.5 ml Intake Oral 400 ml IV Total 1010.0 ml 907.5 ml Output Urine Total 1400 ml 1100 ml # Bowel Movements 3 1 Height (Feet): 5 Height (Inches): 6.00 Weight (Pounds): 124 Objective General Appearance: WD/WN, alert, less confused. 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
--- NOTE | 2020-03-06 10:03 | Urology Progress Note ---
Assessment/Plan Status: stable, progressing Assessment/Plan: 1. Urinary retention. 2. BPH. 3. Neurogenic bladder. 4. Hematuria. 5. Pyuria/UTI/colonized. 6. Proteinuria. 7. Renal insufficiency acute on chronic. 8. Questionable history of urethral stricture. 9. Renal cyst. 10. Sepsis. monitor clinically maintain le, last placed 02/24 by report hand irrigated and do PRN abx as ordered, adjust accordingly f/u on urine cx cysto later Subjective Allergies: Coded Allergies: No Known Allergies (Unverified , 02/24/20) Subjective all noted, looks comfortable Objective Last 24 Hour Vital Signs Date Time Temp Pulse Resp B/P (MAP) Pulse Ox O2 Delivery O2 Flow Rate FiO2 03/06/20 08:00 98.7 58 20 121/67 (85) 97 03/06/20 04:00 98.8 64 18 115/61 (79) 98 03/06/20 00:00 99.0 70 20 126/82 (97) 99 03/05/20 21:00 Room Air 03/05/20 20:00 98.8 76 18 117/78 (91) 98 03/05/20 16:00 98.4 70 18 115/63 (80) 98 03/05/20 12:00 98.3 61 20 115/68 (84) 98 Intake and Output 03/05/20 03/06/20 19:00 07:00 Intake Total 1410.0 ml 907.5 ml Output Total 1400 ml 1100 ml Balance 10.0 ml -192.5 ml Intake Oral 400 ml IV Total 1010.0 ml 907.5 ml Output Urine Total 1400 ml 1100 ml # Bowel Movements 3 1 Microbiology Date/Time Source Procedure Growth Status 03/03/20 19:23 Blood Blood Culture - Final Escherichia Coli - Esbl Complete 03/03/20 21:08 Urine,Clean Catch Urine Culture - Preliminary Escherichia Coli - Esbl Resulted Current Medications Medications (Trade) Dose Ordered Sig/Eddi Route PRN Reason Start Time Stop Time Status Last Admin Dose Admin Acetaminophen (Tylenol) 650 mg Q4H PRN ORAL Pain Scale 1-3/T>100.5 03/04/20 13:00 04/02/20 12:59 03/04/20 13:05 Finasteride (Proscar) 5 mg DAILY ORAL 03/05/20 09:00 06/03/20 08:59 03/06/20 09:03 Heparin Sodium (Porcine) (Heparin 5000 units/ml) 5,000 units EVERY 12 HOURS SUBQ 03/04/20 09:00 04/18/20 08:59 03/05/20 09:20 Magnesium Hydroxide (Mom) 30 ml DAILYPRN PRN ORAL Constipation 03/03/20 22:30 04/02/20 22:29 Ondansetron HCl (Zofran) 4 mg Q6H PRN IVP Nausea & Vomiting 03/03/20 22:30 04/02/20 22:29 Piperacillin Sod/ Tazobactam Sod 3.375 gm/Sodium Chloride 110 ml @ 27.5 mls/hr EVERY 8 HOURS IVPB 03/04/20 00:00 03/11/20 00:00 03/06/20 05:41 Sodium Chloride 1,000 ml @ 50 mls/hr Q20H IV 03/06/20 10:00 04/05/20 09:59 Height (Feet): 5 Height (Inches): 6.00 Weight (Pounds): 124 Objective exam stable urine yellow, occasional debris renal u/s (03/04) noted Gibran Bullock MD March 06, 2020 10:03
--- NOTE | 2020-03-06 11:10 | Infectious Diseases Prog Note ---
Assessment/Plan Assessment/Plan antibiotics : zosyn A 1. e.coli sepsis secondary to UTI 2. e.coli UTI 3. BPH 4. renal failure improving P 1. d.c zosyn 2. start meropenem 3. will follow up cultures Subjective ROS Limited/Unobtainable: Yes Constitutional: Denies: fever, chills Respiratory: Denies: shortness of breath, dry cough Gastrointestinal/Abdominal: Denies: nausea, vomiting, diarrhea Musculoskeletal: Denies: pain Allergies: Coded Allergies: No Known Allergies (Unverified , 02/24/20) Objective Vital Signs Last 24 Hour Vital Signs Date Time Temp Pulse Resp B/P (MAP) Pulse Ox O2 Delivery O2 Flow Rate FiO2 03/06/20 09:00 Room Air 03/06/20 08:00 98.7 58 20 121/67 (85) 97 03/06/20 04:00 98.8 64 18 115/61 (79) 98 03/06/20 00:00 99.0 70 20 126/82 (97) 99 03/05/20 21:00 Room Air 03/05/20 20:00 98.8 76 18 117/78 (91) 98 03/05/20 16:00 98.4 70 18 115/63 (80) 98 03/05/20 12:00 98.3 61 20 115/68 (84) 98 Height (Feet): 5 Height (Inches): 6.00 Weight (Pounds): 124 Respiratory/Chest: lungs clear Cardiovascular: normal rate, regular rhythm, no gallop/murmur Abdomen: soft, non tender Extremities: no edema Microbiology Date/Time Source Procedure Growth Status 03/03/20 19:23 Blood Blood Culture - Final Escherichia Coli - Esbl Complete 03/03/20 19:18 Blood Blood Culture - Final Escherichia Coli - Esbl Complete 03/03/20 21:08 Urine,Clean Catch Urine Culture - Preliminary Escherichia Coli - Esbl Resulted Current Medications Medications (Trade) Dose Ordered Sig/Eddi Route PRN Reason Start Time Stop Time Status Last Admin Dose Admin Acetaminophen (Tylenol) 650 mg Q4H PRN ORAL Pain Scale 1-3/T>100.5 03/04/20 13:00 04/02/20 12:59 03/04/20 13:05 Finasteride (Proscar) 5 mg DAILY ORAL 03/05/20 09:00 06/03/20 08:59 03/06/20 09:03 Heparin Sodium (Porcine) (Heparin 5000 units/ml) 5,000 units EVERY 12 HOURS SUBQ 03/04/20 09:00 04/18/20 08:59 03/05/20 09:20 Magnesium Hydroxide (Mom) 30 ml DAILYPRN PRN ORAL Constipation 03/03/20 22:30 04/02/20 22:29 Ondansetron HCl (Zofran) 4 mg Q6H PRN IVP Nausea & Vomiting 03/03/20 22:30 04/02/20 22:29 Piperacillin Sod/ Tazobactam Sod 3.375 gm/Sodium Chloride 110 ml @ 27.5 mls/hr EVERY 8 HOURS IVPB 03/04/20 00:00 03/11/20 00:00 03/06/20 05:41 Sodium Chloride 1,000 ml @ 50 mls/hr Q20H IV 03/06/20 10:00 04/05/20 09:59 03/06/20 10:06 Bill Ag MD March 06, 2020 11:10
[2020-03-06 12:00] VITALS: BP 118/65
[2020-03-06] MEDS: Meropenem 1 GM in NS 55 ML IVPB SCH ×2 (12:45→13:17)
[2020-03-06] MEDS ORDERED: NS 275ml ONE (14:13)
[2020-03-06] MEDS ORDERED: NS 500ML ONE (14:13)
[2020-03-06] MEDS ORDERED: Tubing IV Secondary IV ONE (14:13)
[2020-03-06 15:48] VITALS: BP 108/68
--- NOTE | 2020-03-06 15:55 | NUR ---
NURSE NOTES: Patient able to ambulate with FWW with PT. Also able to ambulate with FWW to and from bathroom with moderate to minimal assist, noted with small slow steps. No pain or weakness verbalized, patient said he was feeling much better today.
--- NOTE | 2020-03-06 16:28 | NUR ---
NURSE NOTES: Patient said that F16 catheter is too big for him and causes him scar tissues. He said that F14 is the right size for him. Patient also refuses optifoam on heels and offloading with pillow, saying "Why kick a sleeping dog." He said that he prefers walking with FWW. Charge nurse made aware.
--- NOTE | 2020-03-06 19:20 | NUR ---
HAND-OFF: Report given to Lucy MG.
--- NOTE | 2020-03-06 19:29 | NUR ---
NURSE NOTES: Received patient in bed, awake, alert/orientedx3/4, able to verbalize his needs, no acute distress noted, IV site is clean dry and intact, patient has F/c 14 fr, secured, draining well. Patient is able to ambulate with assistance and can use a walker. Call light is within reach bed is lowered, locked, alarm is on. Will continue to monitor for comfort and safety.
[2020-03-06 20:00] VITALS: BP 125/70
[2020-03-07] VITALS: BP 129/74
[2020-03-07 04:00] VITALS: BP 119/74
--- NOTE | 2020-03-07 07:29 | NUR ---
HAND-OFF: Report given to Riky MG.
[2020-03-07 08:00] VITALS: BP 126/69
--- NOTE | 2020-03-07 08:00 | NUR ---
NURSE NOTES: Received report from Lucy MG, pt a/a/o laying in bed with no signs of distress or other issues at this time. sacral Optifoam in place for preventive measures. IV on the right FA gauge#20 running NS@75ml/hr. call light within reach, bed in lowest position, side rales up x2. I will f/u as needed. plan to d/c home today.
[2020-03-07] MEDS: Meropenem 1 GM in NS 55 ML IVPB SCH ×2 (08:28→22:21)
[2020-03-07] MEDS: Heparin 5000 units/ml inj SUBQ SCH ×2 (08:39→22:21)
[2020-03-07 09:01] LABS: ANION GAP 13 mmol/L (5-15); BLOOD UREA NITROGEN 22 mg/dL (7-18); CALCIUM 8.1 MG/DL (8.5-10.1); CARBON DIOXIDE 21 MMOL/L (21-32); CHLORIDE 106 MMOL/L (98-107); CREATININE 1.3 MG/DL (0.55-1.30); POTASSIUM 3.4 MMOL/L (3.5-5.1); SODIUM 140 MMOL/L (136-145)
--- NOTE | 2020-03-07 09:50 | Urology Progress Note ---
Assessment/Plan Status: stable, progressing Assessment/Plan: 1. Urinary retention. 2. BPH. 3. Neurogenic bladder. 4. Hematuria. 5. Pyuria/UTI/colonized. 6. Proteinuria. 7. Renal insufficiency acute on chronic. 8. Questionable history of urethral stricture. 9. Renal cyst. 10. Sepsis. monitor clinically maintain le, last placed 02/24 by report hand irrigated and do PRN abx as ordered cysto later Subjective Allergies: Coded Allergies: No Known Allergies (Unverified , 02/24/20) Subjective all noted, looks comfortable Objective Last 24 Hour Vital Signs Date Time Temp Pulse Resp B/P (MAP) Pulse Ox O2 Delivery O2 Flow Rate FiO2 03/07/20 08:00 98.1 77 19 126/69 (88) 98 03/07/20 04:00 97.0 79 20 119/74 (89) 98 03/07/20 00:00 98.0 74 18 129/74 (92) 98 03/06/20 21:25 Room Air 03/06/20 20:00 98.9 68 16 125/70 (88) 97 03/06/20 15:48 98.1 77 20 108/68 (81) 97 03/06/20 13:00 Room Air 03/06/20 12:00 98.1 67 20 118/65 (82) 97 Intake and Output 03/06/20 03/07/20 19:00 07:00 Intake Total 500 ml 50 ml Output Total 2750 ml Balance 500 ml -2700 ml IV Total 500 ml 50 ml Output Urine Total 2750 ml Microbiology Date/Time Source Procedure Growth Status 03/03/20 19:23 Blood Blood Culture - Final Escherichia Coli - Esbl Complete 03/03/20 21:08 Urine,Clean Catch Urine Culture - Final Escherichia Coli - Esbl Complete Current Medications Medications (Trade) Dose Ordered Sig/Eddi Route PRN Reason Start Time Stop Time Status Last Admin Dose Admin Acetaminophen (Tylenol) 650 mg Q4H PRN ORAL Pain Scale 1-3/T>100.5 03/04/20 13:00 04/02/20 12:59 03/04/20 13:05 Finasteride (Proscar) 5 mg DAILY ORAL 03/05/20 09:00 06/03/20 08:59 03/07/20 08:29 Heparin Sodium (Porcine) (Heparin 5000 units/ml) 5,000 units EVERY 12 HOURS SUBQ 03/04/20 09:00 04/18/20 08:59 03/05/20 09:20 Magnesium Hydroxide (Mom) 30 ml DAILYPRN PRN ORAL Constipation 03/03/20 22:30 04/02/20 22:29 Meropenem 1 gm/ Sodium Chloride 55 ml @ 110 mls/hr Q12HR IVPB 03/06/20 12:00 03/11/20 11:59 03/07/20 08:28 Ondansetron HCl (Zofran) 4 mg Q6H PRN IVP Nausea & Vomiting 03/03/20 22:30 04/02/20 22:29 Sodium Chloride 1,000 ml @ 50 mls/hr Q20H IV 03/06/20 10:00 04/05/20 09:59 03/07/20 05:38 Laboratory Tests 03/07/20 08:25: Sodium Level 140, Potassium Level 3.4L, Chloride Level 106, Carbon Dioxide Level 21, Anion Gap 13, Blood Urea Nitrogen 22H, Creatinine 1.3, Estimat Glomerular Filtration Rate 52.3, Glucose Level 162H, Calcium Level 8.1L Height (Feet): 5 Height (Inches): 6.00 Weight (Pounds): 124 Objective exam stable urine yellow, occasional debris renal u/s (03/04) noted Gibran Bullock MD March 07, 2020 09:50
--- NOTE | 2020-03-07 10:52 | General Progress Note ---
Assessment/Plan Problem List: (1) Bacteremia due to Gram-negative bacteria ICD Codes: R78.81 - Bacteremia SNOMED: 894426885316 (2) Toxic metabolic encephalopathy ICD Codes: G92 - Toxic encephalopathy SNOMED: 132700510 (3) Acute urinary retention ICD Codes: R33.8 - Other retention of urine SNOMED: 540249831 (4) Episode of generalized weakness ICD Codes: R53.1 - Weakness SNOMED: 48566479 (5) Failure to thrive SNOMED: 35685335 Status: stable, progressing Assessment/Plan: cont iv abx dc ivf replace k follow up cultures cont le and ID eval apperciated echo - no veg renal us- no hydro. +gallstones monitor renal fxn/labs will likely need snf Subjective ROS Limited/Unobtainable: No Constitutional: Reports: malaise, weakness HEENT: Reports: no symptoms Cardiovascular: Reports: no symptoms Respiratory: Reports: no symptoms Gastrointestinal/Abdominal: Reports: no symptoms Genitourinary: Reports: no symptoms Neurologic/Psychiatric: Reports: depressed, emotional problems, pre-existing deficit Endocrine: Reports: no symptoms Hematologic/Lymphatic: Reports: no symptoms Allergies: Coded Allergies: No Known Allergies (Unverified , 02/24/20) All Systems: reviewed and negative except above Subjective much less confused. appreciated. eating breakfast, no/cp or sob. has chronic indwelling cath. Per no need to change as recently changed. on iv abx. doesnt want ivf. eating better Objective Last 24 Hour Vital Signs Date Time Temp Pulse Resp B/P (MAP) Pulse Ox O2 Delivery O2 Flow Rate FiO2 03/07/20 08:00 98.1 77 19 126/69 (88) 98 03/07/20 04:00 97.0 79 20 119/74 (89) 98 03/07/20 00:00 98.0 74 18 129/74 (92) 98 03/06/20 21:25 Room Air 03/06/20 20:00 98.9 68 16 125/70 (88) 97 03/06/20 15:48 98.1 77 20 108/68 (81) 97 03/06/20 13:00 Room Air 03/06/20 12:00 98.1 67 20 118/65 (82) 97 Intake and Output 03/06/20 03/07/20 19:00 07:00 Intake Total 500 ml 50 ml Output Total 2750 ml Balance 500 ml -2700 ml IV Total 500 ml 50 ml Output Urine Total 2750 ml Laboratory Tests 03/07/20 08:25: Sodium Level 140, Potassium Level 3.4L, Chloride Level 106, Carbon Dioxide Level 21, Anion Gap 13, Blood Urea Nitrogen 22H, Creatinine 1.3, Estimat Glomerular Filtration Rate 52.3, Glucose Level 162H, Calcium Level 8.1L Height (Feet): 5 Height (Inches): 6.00 Weight (Pounds): 124 Objective General Appearance: WD/WN, alert, less confused. 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
[2020-03-07 12:00] VITALS: BP 145/81
--- NOTE | 2020-03-07 12:58 | Consultation ---
History of Present Illness General Date patient seen: March 07, 2020 Reason for Hospitalization: Generalized Weakness Present Illness HPI 85-year-old male presents for generalized weakness. Patient states for the past week he has been unable to complete his ADLs unable to walk around his house. He reports that his appetite has been decreased. He denied any fever but was febrile on EMS arrival. They report that his apartment was warm. Patient does report thirst on arrival. Patient was seen last week for urinary retention and had Ureña catheter placed. Patient denies any pain on arrival. Admitted for further care and management. On admission identified to have some erythema around the buttock and sacral area. Abnormal labs. Malnutrition. Surgery called to evaluate assist with care. Patient seen, patient evaluated, chart reviewed Allergies: Coded Allergies: No Known Allergies (Unverified , 02/24/20) COVID-19 Screening Contact w/high risk pt: No Recent Travel to affected area: No Experienced COVID-19 symptoms?: Yes COVID-19 symptoms experienced: Fever (T>100.4F or >38C) Medication History Scheduled Nitrofurantoin Monohyd/M-Cryst* (Macrobid 100 Mg*), 100 MG ORAL EVERY 12 HOURS Patient History Limited by: age, medical condition History Provided By: Medical Record, PMD Healthcare decision maker Resuscitation status Advanced Directive on File Past Medical/Surgical History Past Medical/Surgical History: (1) Episode of generalized weakness (2) Failure to thrive (3) Acute urinary retention (4) Bacteremia due to Gram-negative bacteria (5) Toxic metabolic encephalopathy Review of Systems Review of Symptoms General ROS: no weight loss or fever Psychological ROS: no depression or mood changes, no memory loss Ophthalmic ROS: no visual changes or eye irritation ENT ROS: no nasal congestion, hearing loss, dizziness Allergy and Immunology ROS: no allergic symptoms or urticaria Hematological and Lymphatic ROS: no swollen glands, unusual bleeding or bruising Endocrine ROS: no polyuria, polydipsia, weight changes, temperature intolerance Respiratory ROS: no cough, shortness of breath, or wheezing Cardiovascular ROS: no chest pain or dyspnea on exertion Gastrointestinal ROS: denies abdominal pain, bright red blood in stool. Musculoskeletal ROS: no myalgias or arthralgias Neurological ROS: no TIA or stroke symptoms Dermatological ROS: no new or changing skin lesions, rashes or pruritis limited given condition Physical Exam Physical Exam General appearance: alert, cooperative, no distress, appears stated age Head: Normocephalic, without obvious abnormality, atraumatic Eyes: conjunctivae/corneas clear. PERRL, EOM's intact. Fundi benign Throat: Lips, mucosa, and tongue normal. Teeth and gums normal Neck: supple, symmetrical, trachea midline, no adenopathy, thyroid: not enlarged, symmetric, no tenderness/mass/nodules, no carotid bruit and no JVD Lungs: clear to auscultation bilaterally Heart: regular rate and rhythm, S1, S2 normal, no murmur, click, rub or gallop Abdomen: soft, non-tender. Bowel sounds normal. No masses, no organomegaly Extremities: extremities normal, atraumatic, no cyanosis or edema Pulses: 2+ and symmetric Skin: Skin color, texture, turgor normal. No rashes or lesions Neurologic: Grossly normal Last 24 Hour Vital Signs Date Time Temp Pulse Resp B/P (MAP) Pulse Ox O2 Delivery O2 Flow Rate FiO2 03/07/20 12:00 98.2 86 20 145/81 (102) 97 03/07/20 08:00 Room Air 03/07/20 08:00 98.1 77 19 126/69 (88) 98 03/07/20 04:00 97.0 79 20 119/74 (89) 98 03/07/20 00:00 98.0 74 18 129/74 (92) 98 03/06/20 21:25 Room Air 03/06/20 20:00 98.9 68 16 125/70 (88) 97 03/06/20 15:48 98.1 77 20 108/68 (81) 97 03/06/20 13:00 Room Air Intake and Output 03/06/20 03/07/20 19:00 07:00 Intake Total 500 ml 50 ml Output Total 2750 ml Balance 500 ml -2700 ml IV Total 500 ml 50 ml Output Urine Total 2750 ml Laboratory Tests Test 03/07/20 08:25 Sodium Level 140 MMOL/L (136-145) Potassium Level 3.4 MMOL/L (3.5-5.1) L Chloride Level 106 MMOL/L (98-107) Carbon Dioxide Level 21 MMOL/L (21-32) Anion Gap 13 mmol/L (5-15) Blood Urea Nitrogen 22 mg/dL (7-18) H Creatinine 1.3 MG/DL (0.55-1.30) Estimat Glomerular Filtration Rate 52.3 mL/min (>60) Glucose Level 162 MG/DL (74-106) H Calcium Level 8.1 MG/DL (8.5-10.1) L Height (Feet): 5 Height (Inches): 6.00 Weight (Pounds): 124 Medications Current Medications Medications (Trade) Dose Ordered Sig/Edid Route PRN Reason Start Time Stop Time Status Last Admin Dose Admin Acetaminophen (Tylenol) 650 mg Q4H PRN ORAL Pain Scale 1-3/T>100.5 03/04/20 13:00 04/02/20 12:59 03/04/20 13:05 Finasteride (Proscar) 5 mg DAILY ORAL 03/05/20 09:00 06/03/20 08:59 03/07/20 08:29 Heparin Sodium (Porcine) (Heparin 5000 units/ml) 5,000 units EVERY 12 HOURS SUBQ 03/04/20 09:00 04/18/20 08:59 03/05/20 09:20 Magnesium Hydroxide (Mom) 30 ml DAILYPRN PRN ORAL Constipation 03/03/20 22:30 04/02/20 22:29 Meropenem 1 gm/ Sodium Chloride 55 ml @ 110 mls/hr Q12HR IVPB 03/06/20 12:00 03/11/20 11:59 03/07/20 08:28 Ondansetron HCl (Zofran) 4 mg Q6H PRN IVP Nausea & Vomiting 03/03/20 22:30 04/02/20 22:29 Potassium Chloride (K-Dur) 30 meq ONCE ORAL 03/07/20 11:00 03/07/20 13:00 03/07/20 11:30 Assessment/Plan Problem List: (1) Incontinence associated dermatitis Assessment & Plan: Patient identified to have consulted dermatitis in the sacral buttock area. Patient states that occasionally has incontinence and does not realize it. He does not have too much care when wiping and instructed in care plan given to patient at bedside. He is compliant and fairly reasonable. He is pending discharge planning. He is otherwise comfortable. Will monitor closely and provide instruction in care for patient. ICD Codes: L30.8 - Other specified dermatitis; R32 - Unspecified urinary incontinence SNOMED: 502195307 (2) Episode of generalized weakness ICD Codes: R53.1 - Weakness SNOMED: 09547316 (3) Failure to thrive Assessment & Plan: DAILY ESTIMATED NEEDS: Needs based on Sepsis/ 56.5kg 25-30 kcals/kg 3892-6640 total kcals 1-2 g protein/kg 56-112 g total protein 25-30 mL/kg 3429-0465 total fluid mLs NUTRITION DIAGNOSIS: * Altered nutrition related lab values R/T hyperglycemia, clinical condition as evidenced by elev BGs (162 135 206) CURRENT DIET:REGULAR, kosher PO DIET RECOMMENDATIONS: Liberalized REGULAR, KOSHER (Texture as tolerated) ADDITIONAL RECOMMENDATIONS: * Calibrated bedscale wt for accurate CBW * Check A1C: elev BGs * 8oz regular milk TID w/ meals (150kcal, 8g protein) -> pt refused HPN like Ensure/Glucerna * Monitor BGs, need for carb controlled diet/ hypoglycemics * Monitor for continued improved PO intake (admitted w/ FTT dx) * WC eval for sacral wound photo * Add MVI x 1 SNOMED: 08492634 (4) Acute urinary retention ICD Codes: R33.8 - Other retention of urine SNOMED: 041811325 (5) Bacteremia due to Gram-negative bacteria Assessment & Plan: ESBL likely urine ulikely related to wounds thank you ICD Codes: R78.81 - Bacteremia SNOMED: 274876589028 (6) Toxic metabolic encephalopathy ICD Codes: G92 - Toxic encephalopathy SNOMED: 001292404 Marino Yu March 07, 2020 12:58
--- NOTE | 2020-03-07 14:03 | Infectious Diseases Prog Note ---
Assessment/Plan Assessment/Plan A 1. E.coli sepsis 2. E.coli UTI 3. BPH 4. Acute renal failure improving P 1. Continue Meropenem 2. Case was D/W RN Subjective ROS Limited/Unobtainable: No Constitutional: Reports: no symptoms Respiratory: Reports: no symptoms Cardiovascular: Reports: no symptoms Gastrointestinal/Abdominal: Reports: diarrhea Genitourinary: Reports: no symptoms Allergies: Coded Allergies: No Known Allergies (Unverified , 02/24/20) Objective Vital Signs Last 24 Hour Vital Signs Date Time Temp Pulse Resp B/P (MAP) Pulse Ox O2 Delivery O2 Flow Rate FiO2 03/07/20 12:00 98.2 86 20 145/81 (102) 97 03/07/20 08:00 Room Air 03/07/20 08:00 98.1 77 19 126/69 (88) 98 03/07/20 04:00 97.0 79 20 119/74 (89) 98 03/07/20 00:00 98.0 74 18 129/74 (92) 98 03/06/20 21:25 Room Air 03/06/20 20:00 98.9 68 16 125/70 (88) 97 03/06/20 15:48 98.1 77 20 108/68 (81) 97 Height (Feet): 5 Height (Inches): 6.00 Weight (Pounds): 124 General Appearance: no acute distress HEENT: mucous membranes moist Respiratory/Chest: lungs clear Cardiovascular: normal rate Abdomen: soft, non tender Genitourinary: other - Ureña catheter Extremities: no edema Neurologic/Psychiatric: alert, responsive Laboratory Tests Test 03/07/20 08:25 Sodium Level 140 MMOL/L (136-145) Potassium Level 3.4 MMOL/L (3.5-5.1) L Chloride Level 106 MMOL/L (98-107) Carbon Dioxide Level 21 MMOL/L (21-32) Anion Gap 13 mmol/L (5-15) Blood Urea Nitrogen 22 mg/dL (7-18) H Creatinine 1.3 MG/DL (0.55-1.30) Estimat Glomerular Filtration Rate 52.3 mL/min (>60) Glucose Level 162 MG/DL (74-106) H Calcium Level 8.1 MG/DL (8.5-10.1) L Current Medications Medications (Trade) Dose Ordered Sig/Eddi Route PRN Reason Start Time Stop Time Status Last Admin Dose Admin Acetaminophen (Tylenol) 650 mg Q4H PRN ORAL Pain Scale 1-3/T>100.5 03/04/20 13:00 04/02/20 12:59 03/04/20 13:05 Finasteride (Proscar) 5 mg DAILY ORAL 03/05/20 09:00 06/03/20 08:59 03/07/20 08:29 Heparin Sodium (Porcine) (Heparin 5000 units/ml) 5,000 units EVERY 12 HOURS SUBQ 03/04/20 09:00 04/18/20 08:59 03/05/20 09:20 Magnesium Hydroxide (Mom) 30 ml DAILYPRN PRN ORAL Constipation 03/03/20 22:30 04/02/20 22:29 Meropenem 1 gm/ Sodium Chloride 55 ml @ 110 mls/hr Q12HR IVPB 03/06/20 12:00 03/11/20 11:59 03/07/20 08:28 Ondansetron HCl (Zofran) 4 mg Q6H PRN IVP Nausea & Vomiting 03/03/20 22:30 04/02/20 22:29 Hector Hoyt MD March 07, 2020 14:03
--- NOTE | 2020-03-07 15:34 | NUR ---
PT note Attempted to see patient for treatment but patient refused. C/o not feeling well.
[2020-03-07 16:00] VITALS: BP 106/71
[2020-03-07] MEDS ORDERED: NS 275ml ONE (16:00)
[2020-03-07] MEDS ORDERED: Tubing IV Secondary IV ONE (16:00)
--- NOTE | 2020-03-07 19:25 | NUR ---
HAND-OFF: Report given to Bethany RN, pt in stable condition. I&O's Ideal cath: 2100ml
[2020-03-07 20:00] VITALS: BP 131/82
--- NOTE | 2020-03-07 20:08 | NUR ---
NURSE NOTES: Received report from Riky MG, rounds made pt stable no s/s of respiratory distress on RA. Pt denies any pain, IV site on R fore arm 20g locked , Ureña catheter anchored and draining clear yellow , bed in low locked position call light with in reach, will continue with plan of care
[2020-03-08] VITALS: BP 133/96
[2020-03-08 04:00] VITALS: BP 136/75
--- NOTE | 2020-03-08 07:27 | NUR ---
RD ASSESSMENT & RECOMMENDATIONS SEE CARE ACTIVITY FOR COMPLETE ASSESSMENT DAILY ESTIMATED NEEDS: Needs based on Sepsis/ 56.5kg 25-30 kcals/kg 3270-3653 total kcals 1-2 g protein/kg 56-112 g total protein 25-30 mL/kg 9865-7649 total fluid mLs NUTRITION DIAGNOSIS: * Altered nutrition related lab values R/T hyperglycemia, clinical condition as evidenced by elev BGs (162 135 206) CURRENT DIET:REGULAR, kosher PO DIET RECOMMENDATIONS: Liberalized REGULAR, KOSHER (Texture as tolerated) ADDITIONAL RECOMMENDATIONS: * Calibrated bedscale wt for accurate CBW * Check A1C: elev BGs * 8oz regular milk TID w/ meals (150kcal, 8g protein) -> pt refused HPN like Ensure/Glucerna * Monitor BGs, need for carb controlled diet/ hypoglycemics * Monitor for continued improved PO intake (admitted w/ FTT dx) * WC eval for sacral wound photo * Add MVI x 1
--- NOTE | 2020-03-08 07:52 | NUR ---
HAND-OFF: Report given to Macrina MG, pt stable.
[2020-03-08 08:00] VITALS: BP 105/73
[2020-03-08] MEDS: Heparin 5000 units/ml inj SUBQ SCH ×2 (09:00→22:58)
--- NOTE | 2020-03-08 09:03 | Urology Progress Note ---
Assessment/Plan Status: stable, progressing Assessment/Plan: 1. Urinary retention. 2. BPH. 3. Neurogenic bladder. 4. Hematuria. 5. Pyuria/UTI/colonized. 6. Proteinuria. 7. Renal insufficiency acute on chronic. 8. Questionable history of urethral stricture. 9. Renal cyst. 10. Sepsis. monitor clinically maintain le, last placed 02/24 by report hand irrigated and do PRN abx as ordered, per ID cysto later Subjective Allergies: Coded Allergies: No Known Allergies (Unverified , 02/24/20) Subjective all noted, looks comfortable Objective Last 24 Hour Vital Signs Date Time Temp Pulse Resp B/P (MAP) Pulse Ox O2 Delivery O2 Flow Rate FiO2 03/08/20 04:00 97.5 68 18 136/75 (95) 97 03/08/20 00:16 97.6 03/08/20 00:00 97.6 88 17 133/96 (108) 96 03/07/20 21:00 Room Air 03/07/20 20:00 98.6 101 18 131/82 (98) 95 03/07/20 16:00 98.0 87 20 106/71 (83) 98 03/07/20 12:00 98.2 86 20 145/81 (102) 97 Intake and Output 03/07/20 03/08/20 19:00 07:00 Intake Total 600 ml Output Total 2850 ml 700 ml Balance -2250 ml -700 ml Intake Oral 400 ml Other 200 ml Output Urine Total 2850 ml 700 ml # Bowel Movements 1 Microbiology Date/Time Source Procedure Growth Status 03/03/20 19:23 Blood Blood Culture - Final Escherichia Coli - Esbl Complete 03/03/20 21:08 Urine,Clean Catch Urine Culture - Final Escherichia Coli - Esbl Complete Current Medications Medications (Trade) Dose Ordered Sig/Eddi Route PRN Reason Start Time Stop Time Status Last Admin Dose Admin Acetaminophen (Tylenol) 650 mg Q4H PRN ORAL Pain Scale 1-3/T>100.5 03/04/20 13:00 04/02/20 12:59 03/07/20 23:46 Finasteride (Proscar) 5 mg DAILY ORAL 03/05/20 09:00 06/03/20 08:59 03/07/20 08:29 Heparin Sodium (Porcine) (Heparin 5000 units/ml) 5,000 units EVERY 12 HOURS SUBQ 03/04/20 09:00 04/18/20 08:59 03/07/20 22:21 Magnesium Hydroxide (Mom) 30 ml DAILYPRN PRN ORAL Constipation 03/03/20 22:30 04/02/20 22:29 Meropenem 1 gm/ Sodium Chloride 55 ml @ 110 mls/hr Q12HR IVPB 03/06/20 12:00 03/11/20 11:59 03/07/20 22:21 Ondansetron HCl (Zofran) 4 mg Q6H PRN IVP Nausea & Vomiting 03/03/20 22:30 04/02/20 22:29 Height (Feet): 5 Height (Inches): 6.00 Weight (Pounds): 124 Objective exam stable urine yellow, occasional debris renal u/s (03/04) noted Gbiran Bullock MD March 08, 2020 09:03
[2020-03-08] MEDS: Meropenem 1 GM in NS 55 ML IVPB SCH ×2 (09:34→22:57)
--- NOTE | 2020-03-08 10:48 | General Progress Note ---
Assessment/Plan Problem List: (1) Bacteremia due to Gram-negative bacteria ICD Codes: R78.81 - Bacteremia SNOMED: 301403880092 (2) Toxic metabolic encephalopathy ICD Codes: G92 - Toxic encephalopathy SNOMED: 988958709 (3) Acute urinary retention ICD Codes: R33.8 - Other retention of urine SNOMED: 928093563 (4) Episode of generalized weakness ICD Codes: R53.1 - Weakness SNOMED: 12765090 (5) Failure to thrive SNOMED: 58350191 Status: stable, progressing Assessment/Plan: cont iv abx encourage po monitor labs follow up cultures cont le and ID eval apperciated echo - no veg renal us- no hydro. +gallstones monitor renal fxn/labs will likely need snf Subjective ROS Limited/Unobtainable: No Constitutional: Reports: malaise, weakness HEENT: Reports: no symptoms Cardiovascular: Reports: no symptoms Respiratory: Reports: no symptoms Gastrointestinal/Abdominal: Reports: no symptoms Genitourinary: Reports: no symptoms Neurologic/Psychiatric: Reports: anxiety, depressed, emotional problems Endocrine: Reports: no symptoms Hematologic/Lymphatic: Reports: anemia Allergies: Coded Allergies: No Known Allergies (Unverified , 02/24/20) All Systems: reviewed and negative except above Subjective much less confused. appreciated. eating breakfast, no/cp or sob. has chronic indwelling cath. Per no need to change as recently changed. on iv abx. Objective Last 24 Hour Vital Signs Date Time Temp Pulse Resp B/P (MAP) Pulse Ox O2 Delivery O2 Flow Rate FiO2 03/08/20 04:00 97.5 68 18 136/75 (95) 97 03/08/20 00:16 97.6 03/08/20 00:00 97.6 88 17 133/96 (108) 96 03/07/20 21:00 Room Air 03/07/20 20:00 98.6 101 18 131/82 (98) 95 03/07/20 16:00 98.0 87 20 106/71 (83) 98 03/07/20 12:00 98.2 86 20 145/81 (102) 97 Intake and Output 03/07/20 03/08/20 19:00 07:00 Intake Total 600 ml Output Total 2850 ml 700 ml Balance -2250 ml -700 ml Intake Oral 400 ml Other 200 ml Output Urine Total 2850 ml 700 ml # Bowel Movements 1 Height (Feet): 5 Height (Inches): 6.00 Weight (Pounds): 124 Objective General Appearance: WD/WN, alert, less confused. 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
--- NOTE | 2020-03-08 11:01 | NUR ---
DISCHARGE PLANNING PATIENT REFERRED TO [facility] ARCEL[facility] GRAY T:[phone] F:[phone] CM WILL F/U WITH CRISTA FROM FACILITY ([facility]) Addendum: 03/08/20 at 1102 by MIGDALIA SAMAYOA LVN NO MALE BEDS AT THIS TIME
--- NOTE | 2020-03-08 11:11 | Infectious Diseases Prog Note ---
Assessment/Plan Assessment/Plan antibiotics : meropenem A 1. e.coli sepsis secondary to UTI 2. e.coli UTI 3. BPH 4. renal failure improving P 1. continue meropenem 5 more days 2. will follow up cultures Subjective Constitutional: Denies: fever, chills Respiratory: Denies: shortness of breath, dry cough Gastrointestinal/Abdominal: Reports: diarrhea - decreased; Denies: nausea, vomiting Musculoskeletal: Denies: pain Allergies: Coded Allergies: No Known Allergies (Unverified , 02/24/20) Objective Vital Signs Last 24 Hour Vital Signs Date Time Temp Pulse Resp B/P (MAP) Pulse Ox O2 Delivery O2 Flow Rate FiO2 03/08/20 04:00 97.5 68 18 136/75 (95) 97 03/08/20 00:16 97.6 03/08/20 00:00 97.6 88 17 133/96 (108) 96 03/07/20 21:00 Room Air 03/07/20 20:00 98.6 101 18 131/82 (98) 95 03/07/20 16:00 98.0 87 20 106/71 (83) 98 03/07/20 12:00 98.2 86 20 145/81 (102) 97 Height (Feet): 5 Height (Inches): 6.00 Weight (Pounds): 124 Respiratory/Chest: lungs clear Cardiovascular: normal rate, regular rhythm, no gallop/murmur Abdomen: soft, non tender Extremities: no edema Current Medications Medications (Trade) Dose Ordered Sig/Eddi Route PRN Reason Start Time Stop Time Status Last Admin Dose Admin Acetaminophen (Tylenol) 650 mg Q4H PRN ORAL Pain Scale 1-3/T>100.5 03/04/20 13:00 04/02/20 12:59 03/07/20 23:46 Finasteride (Proscar) 5 mg DAILY ORAL 03/05/20 09:00 06/03/20 08:59 03/08/20 09:35 Heparin Sodium (Porcine) (Heparin 5000 units/ml) 5,000 units EVERY 12 HOURS SUBQ 03/04/20 09:00 04/18/20 08:59 03/07/20 22:21 Magnesium Hydroxide (Mom) 30 ml DAILYPRN PRN ORAL Constipation 03/03/20 22:30 04/02/20 22:29 Meropenem 1 gm/ Sodium Chloride 55 ml @ 110 mls/hr Q12HR IVPB 03/06/20 12:00 03/11/20 11:59 03/08/20 09:34 Ondansetron HCl (Zofran) 4 mg Q6H PRN IVP Nausea & Vomiting 03/03/20 22:30 04/02/20 22:29 Bill Ag MD March 08, 2020 11:11
--- NOTE | 2020-03-08 11:20 | NUR ---
*-* INSURANCE *-* UDPATED CLINICALS HAVE BEEN FAXED TO: JAMAR GE[facility] DELEGATED P: [phone] F: [phone] (FAX CLINICALS) & BS TRACKING ONLY/ DELEGATED TO JAMAR F: [phone] (FAX CLINICALS)
--- NOTE | 2020-03-08 11:22 | NUR ---
DISCHARGE PLANNING PATIENT REFERRED TO: [facility] GIFFORD T:[phone] F:[phone] CM WILL F/U Addendum: 03/08/20 at 1125 by MIGDALIA SAMAYOA LVN NO BEDS AT THIS TIME
--- NOTE | 2020-03-08 11:41 | NUR ---
DISCHARGE PLANNING: [facility] T: [phone] F: [phone] AND TO : [facility] T: [phone] F: [phone] CM WILL F/U Addendum: 03/08/20 at 1144 by MIGDALIA SAMAYOA LVN SPOKE TO RAY AT [facility] NO [facility] ~~ POSSIBLE AT END OF WEEK SPOKE TO ED AT [facility] ~~ POSSIBLY SUNDAY
--- NOTE | 2020-03-08 11:49 | NUR ---
*-* INSURANCE *-* UPDATED CLINICALS HAVE BEEN FAXED TO: [facility]LE[facility] P: [phone] F: [phone] (FAX CLINICALS) & BS TRACKING ONLY/ DELEGATED TO JAMAR F: [phone] (FAX CLINICALS)
[2020-03-08 12:00] VITALS: BP 120/71
--- NOTE | 2020-03-08 12:00 | NUR ---
CASE MANAGEMENT:DISCHARGE PLANNING : NOTE CM MADE DR. SINGH AWARE OF NO BEDS AT THIS TIME AT [facility] ALL ARE NOT ACCEPTING PATIENTS AT THIS TIME PATIENT AGREEABLE TO DC TO SNF
--- NOTE | 2020-03-08 13:49 | NUR ---
DISCHARGE PLANNING : REQUESTING REHAB AT THIS TIME [facility] REFERRED PATIENT TO : [facility] T:[phone] CM WILL F/U WITH FAUSTO OR MARICARMEN SPOKE TO KAYKAY FROM INSURANCE CM WILL FAX A CONTRACTED LIST TO ASSIST WITH PLACEMENT T: [phone] EXT [phone] Addendum: 03/08/20 at 1418 by MIGDALIA SAMAYOA LVN [facility] Addendum: 03/08/20 at 1516 by MIGDALIA SAMAYOA LVN [facility] COVID NEGATIVE ~~ ORDERED
--- NOTE | 2020-03-08 15:16 | NUR ---
DISCHARGE PLANNING: PATIENT REFERRED TO [facility] T: [phone] F: [phone] [facility] T [facility] T: [phone] F:[phone] CM WILL F/U Addendum: 03/09/20 at 1056 by MIGDALIA SAMAYOA LVN ED FROM [facility] UNABLE TO ACCEPT; NOT CONTRACT MARIA T CISSE; NO BEDS
[2020-03-08 16:00] VITALS: BP 118/65
--- NOTE | 2020-03-08 18:40 | Surgery Progress Note ---
Surgery Progress Note Subjective Symptoms: improved, tolerating diet, passing flatus Objective Last 24 Hour Vital Signs Date Time Temp Pulse Resp B/P (MAP) Pulse Ox O2 Delivery O2 Flow Rate FiO2 03/08/20 16:00 97.2 90 18 118/65 (82) 94 03/08/20 12:00 97.0 77 20 120/71 (87) 97 03/08/20 09:00 Room Air 03/08/20 09:00 Room Air 03/08/20 08:00 97.5 72 18 105/73 (84) 96 03/08/20 04:00 97.5 68 18 136/75 (95) 97 03/08/20 00:16 97.6 03/08/20 00:00 97.6 88 17 133/96 (108) 96 03/07/20 21:00 Room Air 03/07/20 20:00 98.6 101 18 131/82 (98) 95 I&O Intake and Output 03/07/20 03/08/20 19:00 07:00 Intake Total 600 ml Output Total 2850 ml 700 ml Balance -2250 ml -700 ml Intake Oral 400 ml Other 200 ml Output Urine Total 2850 ml 700 ml # Bowel Movements 1 Dressing: saturated Wound: clean Cardiovascular: RSR Respiratory: decreased breath sounds Abdomen: soft, present bowel sounds Extremities: no tenderness, no cyanosis Plan Problems: (1) Incontinence associated dermatitis (2) Episode of generalized weakness (3) Failure to thrive (4) Acute urinary retention (5) Bacteremia due to Gram-negative bacteria (6) Toxic metabolic encephalopathy Marino Yu March 08, 2020 18:40
--- NOTE | 2020-03-08 19:28 | NUR ---
NURSE NOTES: Received report from Macrina MG, rounds made pt stable no s/s of respiratory distress on RA. Pt denies any pain, IV site on L fore arm 20g locked , Ureña catheter anchored and draining clear yellow , bed in low locked position call light with in reach, will continue with plan of care
--- NOTE | 2020-03-08 19:41 | NUR ---
HAND-OFF: Report given to Bethany/RN pt in bed in stable condition endorsed plan of care.
[2020-03-08 20:00] VITALS: BP 100/70
[2020-03-09] VITALS: BP 104/66
[2020-03-09 04:00] VITALS: BP 114/67
--- NOTE | 2020-03-09 07:20 | NUR ---
NURSE NOTES: Pt in bed having breakfast, has no complains of pain. pt is not having any cardiac or respiratory distress. AOx4 . Bed in lowest position and locked, call light within reach, side rails up x2. Will continue to monitor.
--- NOTE | 2020-03-09 07:21 | NUR ---
HAND-OFF: Report given to Macrina MG pt stable.
[2020-03-09 08:05] VITALS: BP 123/71
[2020-03-09] MEDS: Heparin 5000 units/ml inj SUBQ SCH ×2 (09:00→20:26)
--- NOTE | 2020-03-09 09:03 | Urology Progress Note ---
Assessment/Plan Status: stable, progressing Assessment/Plan: 1. Urinary retention. 2. BPH. 3. Neurogenic bladder. 4. Hematuria. 5. Pyuria/UTI/colonized. 6. Proteinuria. 7. Renal insufficiency acute on chronic. 8. Questionable history of urethral stricture. 9. Renal cyst. 10. Sepsis. monitor clinically maintain le, last placed 02/24 by report hand irrigated and do PRN abx as ordered, per ID cont proscar cysto later Subjective Allergies: Coded Allergies: No Known Allergies (Unverified , 02/24/20) Subjective all noted, looks comfortable Objective Last 24 Hour Vital Signs Date Time Temp Pulse Resp B/P (MAP) Pulse Ox O2 Delivery O2 Flow Rate FiO2 03/09/20 08:09 Room Air 03/09/20 08:05 97.1 95 20 123/71 (88) 97 03/09/20 04:00 98.1 79 16 114/67 (83) 96 03/09/20 00:00 98.5 79 15 104/66 (79) 96 03/08/20 21:00 Room Air 03/08/20 20:00 98.7 84 19 100/70 (80) 96 03/08/20 16:00 97.2 90 18 118/65 (82) 94 03/08/20 12:00 97.0 77 20 120/71 (87) 97 Intake and Output 03/08/20 03/09/20 19:00 07:00 Intake Total 680 ml 480 ml Output Total 650 ml 1100 ml Balance 30 ml -620 ml Intake Oral 480 ml 480 ml Other 200 ml Output Urine Total 650 ml 1100 ml # Voids 1 # Bowel Movements 1 Microbiology Date/Time Source Procedure Growth Status 03/03/20 19:23 Blood Blood Culture - Final Escherichia Coli - Esbl Complete 03/03/20 21:08 Urine,Clean Catch Urine Culture - Final Escherichia Coli - Esbl Complete Current Medications Medications (Trade) Dose Ordered Sig/Eddi Route PRN Reason Start Time Stop Time Status Last Admin Dose Admin Acetaminophen (Tylenol) 650 mg Q4H PRN ORAL Pain Scale 1-3/T>100.5 03/04/20 13:00 04/02/20 12:59 03/08/20 18:16 Finasteride (Proscar) 5 mg DAILY ORAL 03/05/20 09:00 06/03/20 08:59 03/08/20 09:35 Heparin Sodium (Porcine) (Heparin 5000 units/ml) 5,000 units EVERY 12 HOURS SUBQ 03/04/20 09:00 04/18/20 08:59 03/08/20 22:58 Magnesium Hydroxide (Mom) 30 ml DAILYPRN PRN ORAL Constipation 03/03/20 22:30 04/02/20 22:29 Meropenem 1 gm/ Sodium Chloride 55 ml @ 110 mls/hr Q12HR IVPB 03/06/20 12:00 03/11/20 11:59 03/08/20 22:57 Ondansetron HCl (Zofran) 4 mg Q6H PRN IVP Nausea & Vomiting 03/03/20 22:30 04/02/20 22:29 Height (Feet): 5 Height (Inches): 6.00 Weight (Pounds): 124 Objective exam stable urine yellow, occasional debris renal u/s (03/04) noted Gibran Bullock MD March 09, 2020 09:03
[2020-03-09] MEDS: Meropenem 1 GM in NS 55 ML IVPB SCH ×2 (09:47→20:26)
--- NOTE | 2020-03-09 11:16 | Infectious Diseases Prog Note ---
Assessment/Plan Assessment/Plan antibiotics : meropenem A 1. e.coli sepsis secondary to UTI 2. e.coli UTI 3. BPH 4. renal failure improving P 1. continue meropenem 4 more days 2. will follow up cultures Subjective ROS Limited/Unobtainable: Yes Constitutional: Denies: fever, chills Respiratory: Reports: dry cough - mild; Denies: shortness of breath Gastrointestinal/Abdominal: Reports: other - soft stools; Denies: nausea, vomiting Musculoskeletal: Denies: pain Allergies: Coded Allergies: No Known Allergies (Unverified , 02/24/20) Objective Vital Signs Last 24 Hour Vital Signs Date Time Temp Pulse Resp B/P (MAP) Pulse Ox O2 Delivery O2 Flow Rate FiO2 03/09/20 08:09 Room Air 03/09/20 08:05 97.1 95 20 123/71 (88) 97 03/09/20 04:00 98.1 79 16 114/67 (83) 96 03/09/20 00:00 98.5 79 15 104/66 (79) 96 03/08/20 21:00 Room Air 03/08/20 20:00 98.7 84 19 100/70 (80) 96 03/08/20 16:00 97.2 90 18 118/65 (82) 94 03/08/20 12:00 97.0 77 20 120/71 (87) 97 Height (Feet): 5 Height (Inches): 6.00 Weight (Pounds): 124 Respiratory/Chest: lungs clear Cardiovascular: normal rate, regular rhythm, no gallop/murmur Abdomen: soft, non tender Extremities: no edema Current Medications Medications (Trade) Dose Ordered Sig/Eddi Route PRN Reason Start Time Stop Time Status Last Admin Dose Admin Acetaminophen (Tylenol) 650 mg Q4H PRN ORAL Pain Scale 1-3/T>100.5 03/04/20 13:00 04/02/20 12:59 03/08/20 18:16 Finasteride (Proscar) 5 mg DAILY ORAL 03/05/20 09:00 06/03/20 08:59 03/09/20 09:47 Heparin Sodium (Porcine) (Heparin 5000 units/ml) 5,000 units EVERY 12 HOURS SUBQ 03/04/20 09:00 04/18/20 08:59 03/08/20 22:58 Magnesium Hydroxide (Mom) 30 ml DAILYPRN PRN ORAL Constipation 03/03/20 22:30 04/02/20 22:29 Meropenem 1 gm/ Sodium Chloride 55 ml @ 110 mls/hr Q12HR IVPB 03/06/20 12:00 03/11/20 11:59 03/09/20 09:47 Ondansetron HCl (Zofran) 4 mg Q6H PRN IVP Nausea & Vomiting 03/03/20 22:30 04/02/20 22:29 Bill Ag MD March 09, 2020 11:16
[2020-03-09 12:00] VITALS: BP 115/71
--- NOTE | 2020-03-09 12:10 | NUR ---
*-* INSURANCE *-* UPDATED CLINICALS HAVE BEEN FAXED TO: [facility] P: [phone] F: [phone] (FAX CLINICALS) & BS TRACKING ONLY/ DELEGATED TO JAMAR F: [phone] (FAX CLINICALS)
--- NOTE | 2020-03-09 12:19 | NUR ---
DISCHARGE PLANNING: PATIENT REFERRED TO [facility]. [facility] ~~ NO BEDS T:[phone] 2. [facility] ~~ NO BEDS [phone] 3.[facility] NO BEDS T:[phone] 4.[facility] ~~ NO BED T: [phone] 5. [facility] NO BEDS T:[phone] 6. [facility]NO BEDS T: [phone] 7. [facility] ~~ REVIEWING NOW T:[phone] 8.[facility] ~~~NO BEDS [phone] 9. [facility] NO BEDS T: [phone] 10.[facility] ~~~ REVIEWING T: [phone] 11. [facility] ~~NO BEDS T: [phone] 12.[facility] ~~ NO BEDS T: [phone] CM WILL F/U
--- NOTE | 2020-03-09 13:09 | NUR ---
*-*DISCHARGE PLANNING*-* PATIENT HAS BEEN REFERRED TO: [facility] P: [phone] S/W BAILEE LARA, CALL BACK Addendum: 03/09/20 at 1347 by LOBITO DÍAZ CM PATIENT HAS BEEN REFERRED TO: [facility] P: [phone] S/W KVNG WILL CALL BACK AFTER REVIEW.
--- NOTE | 2020-03-09 13:11 | Surgery Progress Note ---
Surgery Progress Note Subjective Symptoms: improved, pain absent, tolerating diet, voiding well, passing flatus , BM Objective Last 24 Hour Vital Signs Date Time Temp Pulse Resp B/P (MAP) Pulse Ox O2 Delivery O2 Flow Rate FiO2 03/09/20 12:00 98.6 89 19 115/71 (86) 97 03/09/20 08:09 Room Air 03/09/20 08:05 97.1 95 20 123/71 (88) 97 03/09/20 04:00 98.1 79 16 114/67 (83) 96 03/09/20 00:00 98.5 79 15 104/66 (79) 96 03/08/20 21:00 Room Air 03/08/20 20:00 98.7 84 19 100/70 (80) 96 03/08/20 16:00 97.2 90 18 118/65 (82) 94 I&O Intake and Output 03/08/20 03/09/20 19:00 07:00 Intake Total 680 ml 480 ml Output Total 650 ml 1100 ml Balance 30 ml -620 ml Intake Oral 480 ml 480 ml Other 200 ml Output Urine Total 650 ml 1100 ml # Voids 1 # Bowel Movements 1 Dressing: dry Wound: clean Cardiovascular: RSR Respiratory: clear Abdomen: soft, non-tender, present bowel sounds Extremities: no edema, no tenderness, no cyanosis Plan Problems: (1) Incontinence associated dermatitis Assessment & Plan: Patient identified to have consulted dermatitis in the sacral buttock area. Patient states that occasionally has incontinence and does not realize it. He does not have too much care when wiping and instructed in care plan given to patient at bedside. He is compliant and fairly reasonable. He is pending discharge planning. He is otherwise comfortable. Will monitor closely and provide instruction in care for patient. Improving since admission. Patient turning as possible sitting up in chair ambulatory when needed let nursing staff know when BM all her urine to identify and help with care. Overall improving. DC planning. (2) Episode of generalized weakness (3) Failure to thrive Assessment & Plan: DAILY ESTIMATED NEEDS: Needs based on Sepsis/ 56.5kg 25-30 kcals/kg 3059-2485 total kcals 1-2 g protein/kg 56-112 g total protein 25-30 mL/kg 7548-1697 total fluid mLs NUTRITION DIAGNOSIS: * Altered nutrition related lab values R/T hyperglycemia, clinical condition as evidenced by elev BGs ([phone]) CURRENT DIET:REGULAR, kosher PO DIET RECOMMENDATIONS: Liberalized REGULAR, KOSHER (Texture as tolerated) ADDITIONAL RECOMMENDATIONS: * Calibrated bedscale wt for accurate CBW * Check A1C: elev BGs * 8oz regular milk TID w/ meals (150kcal, 8g protein) -> pt refused HPN like Ensure/Glucerna * Monitor BGs, need for carb controlled diet/ hypoglycemics * Monitor for continued improved PO intake (admitted w/ FTT dx) * WC eval for sacral wound photo * Add MVI x 1 (4) Acute urinary retention (5) Bacteremia due to Gram-negative bacteria Assessment & Plan: ESBL likely urine ulikely related to wounds thank you (6) Toxic metabolic encephalopathy Marino Yu March 09, 2020 13:11
--- NOTE | 2020-03-09 14:35 | General Progress Note ---
Assessment/Plan Problem List: (1) Bacteremia due to Gram-negative bacteria ICD Codes: R78.81 - Bacteremia SNOMED: 553521841616 (2) Toxic metabolic encephalopathy ICD Codes: G92 - Toxic encephalopathy SNOMED: 863292917 (3) Acute urinary retention ICD Codes: R33.8 - Other retention of urine SNOMED: 208419783 (4) Episode of generalized weakness ICD Codes: R53.1 - Weakness SNOMED: 60428502 (5) Failure to thrive SNOMED: 08335117 Status: stable, progressing Assessment/Plan: cont iv abx encourage po monitor labs follow up cultures cont le and ID eval apperciated monitor renal fxn/labs will likely need snf correctional case manager trying to locate facility Subjective ROS Limited/Unobtainable: No Constitutional: Reports: malaise, weakness HEENT: Reports: no symptoms Cardiovascular: Reports: no symptoms Respiratory: Reports: no symptoms Gastrointestinal/Abdominal: Reports: no symptoms Genitourinary: Reports: incontinence Neurologic/Psychiatric: Reports: anxiety, depressed, emotional problems Endocrine: Reports: no symptoms Hematologic/Lymphatic: Reports: anemia Allergies: Coded Allergies: No Known Allergies (Unverified , 02/24/20) All Systems: reviewed and negative except above Subjective no complaints. remains on iv abx. has clinical advisor indwelling le for urinary retention. awaiting snf placement. Objective Last 24 Hour Vital Signs Date Time Temp Pulse Resp B/P (MAP) Pulse Ox O2 Delivery O2 Flow Rate FiO2 03/09/20 12:00 98.6 89 19 115/71 (86) 97 03/09/20 08:09 Room Air 03/09/20 08:05 97.1 95 20 123/71 (88) 97 03/09/20 04:00 98.1 79 16 114/67 (83) 96 03/09/20 00:00 98.5 79 15 104/66 (79) 96 03/08/20 21:00 Room Air 03/08/20 20:00 98.7 84 19 100/70 (80) 96 03/08/20 16:00 97.2 90 18 118/65 (82) 94 Intake and Output 03/08/20 03/09/20 19:00 07:00 Intake Total 680 ml 480 ml Output Total 650 ml 1100 ml Balance 30 ml -620 ml Intake Oral 480 ml 480 ml Other 200 ml Output Urine Total 650 ml 1100 ml # Voids 1 # Bowel Movements 1 Height (Feet): 5 Height (Inches): 6.00 Weight (Pounds): 124 Objective General Appearance: WD/WN, alert, less confused. thin EENT: PERRL/EOMI, normal ENT inspection Neck: non-tender, normal alignment, supple Cardiovascular: normal peripheral pulses, normal rate, regular rhythm Respiratory/Chest: chest wall non-tender, lungs clear, normal breath sounds, no respiratory distress, no accessory muscle use Abdomen: normal bowel sounds, non tender, soft, no organomegaly Edema: no edema noted Arm (L), no edema noted Arm (R), no edema noted Leg (L), no edema noted Leg (R), no edema noted Pedal (L), no edema noted Pedal (R), no edema noted Generalized Neurologic: pattern attendant II-XII grossly normal, alert, disoriented Skin: normal pigmentation Roque Monroe MD March 09, 2020 14:35
--- NOTE | 2020-03-09 15:05 | NUR ---
CASE MANAGEMENT: REVIEW 03/06/20 SI: FAILURE TO THRIVE . GENERALIZED WEAKNESS . UTI 98.1 77 19 126/69 98% ON RA IS: IVF NS @75ML/HR IV MEROPENEM BID TYLENOL PO Q4/PRN HEPARIN SQ BID PROSCAR PO QD \: 3E MED SURG UNIT DCP: HOME WHEN STABLE PLAN: SWITCH IV ABX TO MEROPENEM DC PLANNING WITH CASE MANAGEMENT: REVIEW 03/07/20 SI: FAILURE TO THRIVE . GENERALIZED WEAKNESS . UTI 97.0 79 20 119/74 98% ON RA K+ 3.4 BG 162 IS: IV MEROPENEM BID TYLENOL PO Q4/PRN HEPARIN SQ BID PROSCAR PO QD \: 3E MED SURG UNIT DCP: HOME WHEN STABLE PLAN: CONT PT THERAPY CASE MANAGEMENT: REVIEW 03/08/20 SI: FAILURE TO THRIVE . GENERALIZED WEAKNESS . UTI 97.0 77 20 120/71 97% ON RA IS: IV MEROPENEM BID TYLENOL PO Q4/PRN HEPARIN SQ BID PROSCAR PO QD \: 3E MED SURG UNIT DCP: HOME WHEN STABLE PLAN: CONT PT THERAPY DC PLANNING WITH MD NO WILLING ACCEPTING FACILITIES FROM CONTRACTED [facility] ARE LIMITED BEDS AND FACILITIES ABLE TO ACCEPT POTENTIAL BEDS AVAILABLE WITH COVID RESULTS CASE MANAGEMENT: REVIEW 03/09/20 SI: FAILURE TO THRIVE . GENERALIZED WEAKNESS . UTI 98.6 89 19 115/71 97% ON RA IS: IV MEROPENEM BID TYLENOL PO Q4/PRN HEPARIN SQ BID PROSCAR PO QD \: 3E MED SURG UNIT DCP: HOME WHEN STABLE PLAN: CONT IV ABX DC PLANNING WITH MD NO WILLING ACCEPTING FACILITIES FROM [facility]ED [facility] ARE LIMITED BEDS AND FACILITIES ABLE TO ACCEPT POTENTIAL BEDS AVAILABLE WITH COVID RESULTS
--- NOTE | 2020-03-09 15:12 | NUR ---
*-*DISCHARGE PLANNING*-* PATIENT HAS BEEN REFERRED TO: [facility] P: [phone] S/W KVNG, STATED WILLING TO ACCEPT THIS PATIENT, PENDING COVID TEST, WILL FOLLOW UP TOMORROW 03/10/2020, WITH COVID RESULTS.
[2020-03-09 16:00] VITALS: BP 124/70
--- NOTE | 2020-03-09 16:30 | NUR ---
NURSE NOTES: le urine out put 875ml
--- NOTE | 2020-03-09 19:05 | NUR ---
HAND-OFF: Report given to Bethany/nguyen, pt in stable condition.
--- NOTE | 2020-03-09 19:37 | NUR ---
NURSE NOTES: Received report from Macrina MG, rounds made pt stable no s/s of respiratory distress on RA. Pt denies any pain, IV site on L fore arm no IVF , Ureña catheter anchored and draining clear yellow , bed in low locked position call light with in reach, will continue with plan of care
[2020-03-09 20:00] VITALS: BP 110/68
[2020-03-10] VITALS (7 sets, daily range): BP systolic 94–123; BP diastolic 61–71
[2020-03-10 06:01] LABS: BASOPHILS % (AUTO) 0.8 % (0.0-2.0); EOSINOPHILS % (AUTO) 2.3 % (0.0-3.0); HEMATOCRIT 38.1 % (42.0-52.0); HEMOGLOBIN 13.7 G/DL (14.2-18.0); LYMPHOCYTES % (AUTO) 17.9 % (20.0-45.0); MEAN CORPUSCULAR VOLUME 93 FL (80-99); MONOCYTES % (AUTO) 6.6 % (1.0-10.0); NEUTROPHILS % (AUTO) 72.3 % (45.0-75.0); PLATELET COUNT 303 K/UL (150-450); RED CELL DISTRIBUTION WIDTH 11.2 % (11.6-14.8); WHITE BLOOD COUNT 8.5 K/UL (4.8-10.8)
[2020-03-10 06:43] LABS: ANION GAP 10 mmol/L (5-15); BLOOD UREA NITROGEN 30 mg/dL (7-18); CALCIUM 8.6 MG/DL (8.5-10.1); CARBON DIOXIDE 25 MMOL/L (21-32); CHLORIDE 104 MMOL/L (98-107); CREATININE 1.5 MG/DL (0.55-1.30); POTASSIUM 4.1 MMOL/L (3.5-5.1); SODIUM 139 MMOL/L (136-145)
--- NOTE | 2020-03-10 06:59 | NUR ---
HAND-OFF: Report given to Valente CARTER RN,pt stable.
--- NOTE | 2020-03-10 07:35 | NUR ---
NURSE NOTES: PT AXOX3-4, FORGETFUL, CALM AND RESTING IN BED. PT DENIES PAIN OR NAUSEA AT THIS TIME. IN NO APPARENT DISTRESS AT THIS TIME. PT HAS A WALKER AT BEDSIDE. PT WAS EDUCATED TO NOT AMBULATE INDEPENDENTLY, AND CALL STAFF FOR ASSISTANCE BEFORE GETTING UP. EDUCATED ON FALL/SAFETY PRECAUTIONS. PT VERBALIZED UNDERSTANDING. BED IN LOWEST POSITION WITH BEDSIDE RAILS X2 RAISED. BED ALARM ON. CALL LIGHT WITHIN REACH. WILL CONTINUE TO MONITOR.
[2020-03-10] MEDS: Meropenem 1 GM in NS 55 ML IVPB SCH ×2 (08:18→21:13)
[2020-03-10] MEDS: Heparin 5000 units/ml inj SUBQ SCH ×2 (08:36→21:14)
--- NOTE | 2020-03-10 10:12 | Urology Progress Note ---
Assessment/Plan Status: stable, progressing Assessment/Plan: 1. Urinary retention. 2. BPH. 3. Neurogenic bladder. 4. Hematuria. 5. Pyuria/UTI/colonized. 6. Proteinuria. 7. Renal insufficiency acute on chronic. 8. Questionable history of urethral stricture. 9. Renal cyst. 10. Sepsis. monitor clinically maintain le, last placed 02/24 by report hand irrigated and do PRN abx as ordered, per ID cont proscar cysto later Subjective Allergies: Coded Allergies: No Known Allergies (Unverified , 02/24/20) Subjective all noted, looks comfortable Objective Last 24 Hour Vital Signs Date Time Temp Pulse Resp B/P (MAP) Pulse Ox O2 Delivery O2 Flow Rate FiO2 03/10/20 09:00 Room Air 03/10/20 08:00 98.2 78 18 123/71 (88) 98 03/10/20 04:00 98.7 74 16 120/71 (87) 97 03/10/20 00:00 98.6 80 18 102/61 (75) 96 03/09/20 21:00 Room Air 03/09/20 20:00 97.3 80 18 110/68 (82) 96 03/09/20 16:00 98.6 74 19 124/70 (88) 97 03/09/20 12:00 98.6 89 19 115/71 (86) 97 Intake and Output 03/09/20 03/10/20 19:00 07:00 Intake Total 720 ml Output Total 800 ml 1000 ml Balance -80 ml -1000 ml Intake Oral 720 ml Output Urine Total 800 ml 1000 ml # Bowel Movements 2 1 Microbiology Date/Time Source Procedure Growth Status 03/03/20 19:23 Blood Blood Culture - Final Escherichia Coli - Esbl Complete 03/08/20 17:20 Nasopharynx Coronavirus COVID-19 PCR (JEREMIAH) - Final Complete 03/03/20 21:08 Urine,Clean Catch Urine Culture - Final Escherichia Coli - Esbl Complete Current Medications Medications (Trade) Dose Ordered Sig/Eddi Route PRN Reason Start Time Stop Time Status Last Admin Dose Admin Acetaminophen (Tylenol) 650 mg Q4H PRN ORAL Pain Scale 1-3/T>100.5 03/04/20 13:00 04/02/20 12:59 03/08/20 18:16 Finasteride (Proscar) 5 mg DAILY ORAL 03/05/20 09:00 06/03/20 08:59 03/10/20 08:18 Heparin Sodium (Porcine) (Heparin 5000 units/ml) 5,000 units EVERY 12 HOURS SUBQ 03/04/20 09:00 04/18/20 08:59 03/10/20 08:36 Magnesium Hydroxide (Mom) 30 ml DAILYPRN PRN ORAL Constipation 03/03/20 22:30 04/02/20 22:29 Meropenem 1 gm/ Sodium Chloride 55 ml @ 110 mls/hr Q12HR IVPB 03/06/20 12:00 03/11/20 11:59 03/10/20 08:18 Ondansetron HCl (Zofran) 4 mg Q6H PRN IVP Nausea & Vomiting 03/03/20 22:30 04/02/20 22:29 Laboratory Tests 03/10/20 05:15: White Blood Count 8.5, Red Blood Count 4.10L, Hemoglobin 13.7L, Hematocrit 38.1L , Mean Corpuscular Volume 93, Mean Corpuscular Hemoglobin 33.4H, Mean Corpuscular Hemoglobin Concent 36.0, Red Cell Distribution Width 11.2L, Platelet Count 303, Mean Platelet Volume 5.7L, Neutrophils (%) (Auto) 72.3, Lymphocytes (%) (Auto) 17.9L, Monocytes (%) (Auto) 6.6, Eosinophils (%) (Auto) 2.3, Basophils (%) (Auto) 0.8, Sodium Level 139, Potassium Level 4.1, Chloride Level 104, Carbon Dioxide Level 25, Anion Gap 10, Blood Urea Nitrogen 30H, Creatinine 1.5H, Estimat Glomerular Filtration Rate 44.4, Glucose Level 99, Calcium Level 8.6 Height (Feet): 5 Height (Inches): 6.00 Weight (Pounds): 122 Objective exam stable urine yellow, occasional debris renal u/s (03/04) noted Gibran Bullock MD March 10, 2020 10:12
--- NOTE | 2020-03-10 10:34 | Infectious Diseases Prog Note ---
Assessment/Plan Assessment/Plan antibiotics : meropenem A 1. e.coli sepsis secondary to UTI 2. e.coli UTI 3. BPH 4. renal failure improving P 1. continue meropenem 3 more days 2. will follow up cultures Subjective ROS Limited/Unobtainable: Yes Allergies: Coded Allergies: No Known Allergies (Unverified , 02/24/20) Objective Vital Signs Last 24 Hour Vital Signs Date Time Temp Pulse Resp B/P (MAP) Pulse Ox O2 Delivery O2 Flow Rate FiO2 03/10/20 09:00 Room Air 03/10/20 08:00 98.2 78 18 123/71 (88) 98 03/10/20 04:00 98.7 74 16 120/71 (87) 97 03/10/20 00:00 98.6 80 18 102/61 (75) 96 03/09/20 21:00 Room Air 03/09/20 20:00 97.3 80 18 110/68 (82) 96 03/09/20 16:00 98.6 74 19 124/70 (88) 97 03/09/20 12:00 98.6 89 19 115/71 (86) 97 Height (Feet): 5 Height (Inches): 6.00 Weight (Pounds): 122 Respiratory/Chest: lungs clear Cardiovascular: normal rate, regular rhythm, no gallop/murmur Abdomen: soft, non tender Extremities: no edema Microbiology Date/Time Source Procedure Growth Status 03/08/20 17:20 Nasopharynx Coronavirus COVID-19 PCR (JEREMIAH) - Final Complete Laboratory Tests Test 03/10/20 05:15 White Blood Count 8.5 K/UL (4.8-10.8) Red Blood Count 4.10 M/UL (4.70-6.10) L Hemoglobin 13.7 G/DL (14.2-18.0) L Hematocrit 38.1 % (42.0-52.0) L Mean Corpuscular Volume 93 FL (80-99) Mean Corpuscular Hemoglobin 33.4 PG (27.0-31.0) H Mean Corpuscular Hemoglobin Concent 36.0 G/DL (32.0-36.0) Red Cell Distribution Width 11.2 % (11.6-14.8) L Platelet Count 303 K/UL (150-450) Mean Platelet Volume 5.7 FL (6.5-10.1) L Neutrophils (%) (Auto) 72.3 % (45.0-75.0) Lymphocytes (%) (Auto) 17.9 % (20.0-45.0) L Monocytes (%) (Auto) 6.6 % (1.0-10.0) Eosinophils (%) (Auto) 2.3 % (0.0-3.0) Basophils (%) (Auto) 0.8 % (0.0-2.0) Sodium Level 139 MMOL/L (136-145) Potassium Level 4.1 MMOL/L (3.5-5.1) Chloride Level 104 MMOL/L (98-107) Carbon Dioxide Level 25 MMOL/L (21-32) Anion Gap 10 mmol/L (5-15) Blood Urea Nitrogen 30 mg/dL (7-18) H Creatinine 1.5 MG/DL (0.55-1.30) H Estimat Glomerular Filtration Rate 44.4 mL/min (>60) Glucose Level 99 MG/DL (74-106) Calcium Level 8.6 MG/DL (8.5-10.1) Current Medications Medications (Trade) Dose Ordered Sig/Eddi Route PRN Reason Start Time Stop Time Status Last Admin Dose Admin Acetaminophen (Tylenol) 650 mg Q4H PRN ORAL Pain Scale 1-3/T>100.5 03/04/20 13:00 04/02/20 12:59 03/08/20 18:16 Finasteride (Proscar) 5 mg DAILY ORAL 03/05/20 09:00 06/03/20 08:59 03/10/20 08:18 Heparin Sodium (Porcine) (Heparin 5000 units/ml) 5,000 units EVERY 12 HOURS SUBQ 03/04/20 09:00 04/18/20 08:59 03/10/20 08:36 Magnesium Hydroxide (Mom) 30 ml DAILYPRN PRN ORAL Constipation 03/03/20 22:30 04/02/20 22:29 Meropenem 1 gm/ Sodium Chloride 55 ml @ 110 mls/hr Q12HR IVPB 03/06/20 12:00 03/15/20 11:59 03/10/20 08:18 Ondansetron HCl (Zofran) 4 mg Q6H PRN IVP Nausea & Vomiting 03/03/20 22:30 6/12/20 22:29 Bill Ag MD March 10, 2020 10:34
--- NOTE | 2020-03-10 12:42 | NUR ---
*-* INSURANCE *-* UPDATED CLINICALS HAVE BEEN FAXED TO: [facility] P: [phone] F: [phone] (FAX CLINICALS) & BS TRACKING ONLY/ DELEGATED TO JAMAR F: [phone] (FAX CLINICALS)
--- NOTE | 2020-03-10 12:49 | NUR ---
*-*DISCHARGE PLANNING*-* PATIENT HAS BEEN ACCEPTED TO: [facility] T: [phone] ROOM# 24A [facility] P[facility]UP TIME @ 430PM HONORIO NOVA MADE AWARE OF DISCHARGE T: [phone]
--- NOTE | 2020-03-10 13:49 | NUR ---
*-*DISCHARGE PLANNED*-* PATIENT HAS BEEN ACCEPTED TO: [facility] T: [phone] ROOM# 24A [facility] PICKUP TIME @ 430PM HONORIO NOVA MADE AWARE OF DISCHARGE T: [phone]
--- NOTE | 2020-03-10 14:19 | Surgery Progress Note ---
Surgery Progress Note Subjective Additional Comments doing well no acute events comfortable stable labs noted moving around forgetful Objective Last 24 Hour Vital Signs Date Time Temp Pulse Resp B/P (MAP) Pulse Ox O2 Delivery O2 Flow Rate FiO2 03/10/20 12:00 97.2 88 20 94/64 (74) 95 03/10/20 09:00 Room Air 03/10/20 08:00 98.2 78 18 123/71 (88) 98 03/10/20 04:00 98.7 74 16 120/71 (87) 97 03/10/20 00:00 98.6 80 18 102/61 (75) 96 03/09/20 21:00 Room Air 03/09/20 20:00 97.3 80 18 110/68 (82) 96 03/09/20 16:00 98.6 74 19 124/70 (88) 97 I&O Intake and Output 03/09/20 03/10/20 19:00 07:00 Intake Total 720 ml Output Total 800 ml 1000 ml Balance -80 ml -1000 ml Intake Oral 720 ml Output Urine Total 800 ml 1000 ml # Bowel Movements 2 1 Dressing: dry Wound: clean Cardiovascular: RSR Respiratory: clear Abdomen: soft, non-tender, present bowel sounds Extremities: no edema, no tenderness, no cyanosis Laboratory Tests Test 03/10/20 05:15 White Blood Count 8.5 K/UL (4.8-10.8) Red Blood Count 4.10 M/UL (4.70-6.10) L Hemoglobin 13.7 G/DL (14.2-18.0) L Hematocrit 38.1 % (42.0-52.0) L Mean Corpuscular Volume 93 FL (80-99) Mean Corpuscular Hemoglobin 33.4 PG (27.0-31.0) H Mean Corpuscular Hemoglobin Concent 36.0 G/DL (32.0-36.0) Red Cell Distribution Width 11.2 % (11.6-14.8) L Platelet Count 303 K/UL (150-450) Mean Platelet Volume 5.7 FL (6.5-10.1) L Neutrophils (%) (Auto) 72.3 % (45.0-75.0) Lymphocytes (%) (Auto) 17.9 % (20.0-45.0) L Monocytes (%) (Auto) 6.6 % (1.0-10.0) Eosinophils (%) (Auto) 2.3 % (0.0-3.0) Basophils (%) (Auto) 0.8 % (0.0-2.0) Sodium Level 139 MMOL/L (136-145) Potassium Level 4.1 MMOL/L (3.5-5.1) Chloride Level 104 MMOL/L (98-107) Carbon Dioxide Level 25 MMOL/L (21-32) Anion Gap 10 mmol/L (5-15) Blood Urea Nitrogen 30 mg/dL (7-18) H Creatinine 1.5 MG/DL (0.55-1.30) H Estimat Glomerular Filtration Rate 44.4 mL/min (>60) Glucose Level 99 MG/DL (74-106) Calcium Level 8.6 MG/DL (8.5-10.1) Plan Problems: (1) Incontinence associated dermatitis Assessment & Plan: Patient identified to have consulted dermatitis in the sacral buttock area. Patient states that occasionally has incontinence and does not realize it. He does not have too much care when wiping and instructed in care plan given to patient at bedside. He is compliant and fairly reasonable. He is pending discharge planning. He is otherwise comfortable. Will monitor closely and provide instruction in care for patient. Improving since admission. Patient turning as possible sitting up in chair ambulatory when needed let nursing staff know when BM all her urine to identify and help with care. Overall improving. DC planning. (2) Episode of generalized weakness (3) Failure to thrive Assessment & Plan: DAILY ESTIMATED NEEDS: Needs based on Sepsis/ 56.5kg 25-30 kcals/kg 0287-4285 total kcals 1-2 g protein/kg 56-112 g total protein 25-30 mL/kg 7747-9041 total fluid mLs NUTRITION DIAGNOSIS: * Altered nutrition related lab values R/T hyperglycemia, clinical condition as evidenced by elev BGs (162 135 206) CURRENT DIET:REGULAR, kosher PO DIET RECOMMENDATIONS: Liberalized REGULAR, KOSHER (Texture as tolerated) ADDITIONAL RECOMMENDATIONS: * Calibrated bedscale wt for accurate CBW * Check A1C: elev BGs * 8oz regular milk TID w/ meals (150kcal, 8g protein) -> pt refused HPN like Ensure/Glucerna * Monitor BGs, need for carb controlled diet/ hypoglycemics * Monitor for continued improved PO intake (admitted w/ FTT dx) * WC eval for sacral wound photo * Add MVI x 1 (4) Acute urinary retention (5) Bacteremia due to Gram-negative bacteria Assessment & Plan: ESBL likely urine ulikely related to wounds thank you (6) Toxic metabolic encephalopathy Marino Yu March 10, 2020 14:19
--- NOTE | 2020-03-10 14:40 | NUR ---
NURSE NOTES: RETAIL SECURITY PROFESSIONAL MIGDALIA SPOKE TO PT AT BEDSIDE AND PT AGREED TO GO TO [facility]. RN MADE DR SINGH AWARE PT HAS BEEN ACCEPTED AND AGREED TO [facility]. PER DR SINGH, SINCE FACILITY HAS COVID POSITIVE PTS, OFFER PT TO GO HOME. RN SPOKE TO PT AND PT'S DAUGHTER TERESITA NOVA AND BOTH AGREED FOR PT TO GO HOME. DR SINGH WAS NOTIFIED AND PER MD, PT WILL NEED HOME HEALTH FOR IV ANTIBIOTICS AND NEED TO FILL OUT APS REPORT. RN MADE MIGDALIA AWARE AND SPOKE TO CLARKE, CNC SERVICE ENGINEER, AND MADE AWARE OF MD REQUEST FOR APS REPORT. CLARKE AT BEDSIDE.
--- NOTE | 2020-03-10 14:46 | NUR ---
NURSE NOTES: PER PT'S DTG TERESITA NOVA, SHE WOULD LIKE A COPY OF MEDICAL RECORDS SENT TO HER, ESPECIALLY COVD RESULTS BECAUSE DTG WANTS DOCUMENTATION DUE TO FLIGHT RESTRICTIONS TO BRING HER FATHER HOME TO [place]. PT AGREED TO RELEASE MEDICAL INFORMATION TO TERESITA AND SIGNED MEDICAL RECORD RELEASE FORM. RN MADE CRN AWARE THE FORM NEEDS TO BE TURNED IN TO MEDICAL RECORDS WHEN PT IS DISCHARGED. TERESITA'S ADDRESS IS [address] [place] [place] [address] [place] [address]. PAPERWORK PLACED IN PT'S CHART.
--- NOTE | 2020-03-10 15:34 | General Progress Note ---
Assessment/Plan Problem List: (1) Bacteremia due to Gram-negative bacteria ICD Codes: R78.81 - Bacteremia SNOMED: 086246427845 (2) Toxic metabolic encephalopathy ICD Codes: G92 - Toxic encephalopathy SNOMED: 110629979 (3) Acute urinary retention ICD Codes: R33.8 - Other retention of urine SNOMED: 387069949 (4) Episode of generalized weakness ICD Codes: R53.1 - Weakness SNOMED: 84266220 (5) Failure to thrive SNOMED: 22978426 Status: stable, progressing Assessment/Plan: cont iv abx fro 2 more days encourage po monitor labs follow up cultures cont le and ID eval apperciated monitor renal fxn/labs dc planning home per pt/family will need home health Subjective ROS Limited/Unobtainable: No Constitutional: Reports: malaise, weakness HEENT: Reports: no symptoms Cardiovascular: Reports: no symptoms Respiratory: Reports: no symptoms Gastrointestinal/Abdominal: Reports: no symptoms Genitourinary: Reports: no symptoms Neurologic/Psychiatric: Reports: anxiety, depressed, emotional problems Endocrine: Reports: no symptoms Hematologic/Lymphatic: Reports: anemia Allergies: Coded Allergies: No Known Allergies (Unverified , 02/24/20) All Systems: reviewed and negative except above Subjective overall feels better. d/w pt and dtr- do not want to go snf- especially with covid pts. needs 2 more days iv abx. Objective Last 24 Hour Vital Signs Date Time Temp Pulse Resp B/P (MAP) Pulse Ox O2 Delivery O2 Flow Rate FiO2 03/10/20 12:00 97.2 88 20 94/64 (74) 95 03/10/20 09:00 Room Air 03/10/20 08:00 98.2 78 18 123/71 (88) 98 03/10/20 04:00 98.7 74 16 120/71 (87) 97 03/10/20 00:00 98.6 80 18 102/61 (75) 96 03/09/20 21:00 Room Air 03/09/20 20:00 97.3 80 18 110/68 (82) 96 03/09/20 16:00 98.6 74 19 124/70 (88) 97 Intake and Output 03/09/20 03/10/20 19:00 07:00 Intake Total 720 ml Output Total 800 ml 1000 ml Balance -80 ml -1000 ml Intake Oral 720 ml Output Urine Total 800 ml 1000 ml # Bowel Movements 2 1 Laboratory Tests 03/10/20 05:15: White Blood Count 8.5, Red Blood Count 4.10L, Hemoglobin 13.7L, Hematocrit 38.1L , Mean Corpuscular Volume 93, Mean Corpuscular Hemoglobin 33.4H, Mean Corpuscular Hemoglobin Concent 36.0, Red Cell Distribution Width 11.2L, Platelet Count 303, Mean Platelet Volume 5.7L, Neutrophils (%) (Auto) 72.3, Lymphocytes (%) (Auto) 17.9L, Monocytes (%) (Auto) 6.6, Eosinophils (%) (Auto) 2.3, Basophils (%) (Auto) 0.8, Sodium Level 139, Potassium Level 4.1, Chloride Level 104, Carbon Dioxide Level 25, Anion Gap 10, Blood Urea Nitrogen 30H, Creatinine 1.5H, Estimat Glomerular Filtration Rate 44.4, Glucose Level 99, Calcium Level 8.6 Height (Feet): 5 Height (Inches): 6.00 Weight (Pounds): 122 Objective General Appearance: WD/WN, alert, less confused. thin EENT: PERRL/EOMI, normal ENT inspection Neck: non-tender, normal alignment, supple Cardiovascular: normal peripheral pulses, normal rate, regular rhythm Respiratory/Chest: chest wall non-tender, lungs clear, normal breath sounds, no respiratory distress, no accessory muscle use Abdomen: normal bowel sounds, non tender, soft, no organomegaly Edema: no edema noted Arm (L), no edema noted Arm (R), no edema noted Leg (L), no edema noted Leg (R), no edema noted Pedal (L), no edema noted Pedal (R), no edema noted Generalized Neurologic: hospital chief financial officer II-XII grossly normal, alert, disoriented Skin: normal pigmentation Roque Monroe MD March 10, 2020 15:34
--- NOTE | 2020-03-10 15:52 | NUR ---
DISCHARGE PLANNED PATIENT HAS DENIED PLACEMENT PATIENT DISCHARGE TO HOME WITH HOME HEALTH PATIENT REFERRED TO [facility] T: [phone] [facility] WILL PROVIDE HOME HEALTH NURSE Addendum: 03/10/20 at 1715 by MIGDALIA SAMAYOA LVN HOME HEALTH AND MEDICATION ALL ARRANGED AND DOCTOR MADE AWARE DC HELD BY DR. SINGH
--- NOTE | 2020-03-10 15:56 | NUR ---
PATCHER BOWLING BALL NOTE SW met w/ pt and clarified DC plan. PT reports he refused to go to [facility] d/t Covid-19 concern. Pt reports he would rather return home upon DC. SW explained the risks of returning home w/o suffiicent support/care. Pt verbalized understanding. SW also explained the fall risk as he uses a walker and lives on the second floor where the building does not have an elevator. Pt also verbalized that he understands the risk. Per pt, his partner Shirley [phone] agreed pt returning home. Per pt, his partner Shirley is 76 y/o and is able to cook and do her ADLs independently However, she is forgetful. Per assigned CM, the daughter was informed that pt will return home upon DC. Pt's main concern is food delivery/grocery shopping. SW provided the list of caregiving service agencies and [facility] senior program information. SW highly recommended that the couple may need a caregiver. Pt nodded. Pt shares his daughter Calli who lives in [place] will arrange his moving from [place] to [place] in near future. Pt agreed he will need more resource as he returns home. DIANA attempted to file APS report online 2x. However, the community health online system is down. DIANA is attempting to call the [facility] APS over the phone. Addendum: 03/10/20 at 1658 by CLARKE ORTIZ SW attempted to call APS hotline, no answer more than an hour. DIANA will attempt tomorrow.
[2020-03-10] MEDS ORDERED: INVANZ1 G1 IV (16:09)
--- NOTE | 2020-03-10 16:15 | NUR ---
NURSE NOTES: PER MIGDALIA, PT WILL BE PROVIDED HOME HEALTH SERVICES WITH [facility] FOR ERTAPENEM 1GM IV DAILY X [address]. [address] SINGH AWARE AND PER , PT NEEDS TO CONTINUE HOSPITAL MEDS BUT MD NO LONGER AT HOSPITAL. RN PROVIDED [facility] NUMBER TO CALL IN PRESCRIPTIONS. PER MD, HE IS UNABLE TO DO IT TODAY AND HOLD DISCHARGE UNTIL TOMORROW. RN MADE MADISON NEGRON AND ESTER RYAN AWARE.
--- NOTE | 2020-03-10 16:34 | NUR ---
NURSE NOTES: RN NOTIFIED PT'S DAUGHTER TERESITA NOVA AND PT ON DISCHARGE TOMORROW WITH HOME HEALTH SERVICES.
--- NOTE | 2020-03-10 19:21 | NUR ---
HAND-OFF: Report given to Jeremiah GARCÍA. RN ENDORSED WE ARE WAITING FOR DR SINGH'S PRESCRIPTIONS AND NEED TO HAVE MEDS DELIVERED BEFORE PT IS DISCHARGED. PT WILL GO BY [employer] AND NEED [employer] VOUCHER BEFORE DISCHARGE. RN TO DROP OFF PT'S REQUEST FOR MEDICAL RECORDS THAT ARE IN CHART UPON DISCHARGE.
--- NOTE | 2020-03-10 19:30 | NUR ---
NURSE NOTES: Received patient in no apparent distress. A&OX4. IV site patent and intact. Ureña draining well by gravity, yellow urine noted. Bed in lowest position. Call light within reach. Will continue to monitor.
[2020-03-11 04:00] VITALS: BP 109/74
--- NOTE | 2020-03-11 07:19 | NUR ---
NURSE NOTES: Notified Dr. Monroe in person regarding patient's daughter requesting wheelchair for the patient. MD johnston.
--- NOTE | 2020-03-11 07:45 | NUR ---
NURSE NOTES: Received report from HARITHA Miranda. Patient in bed with no apparent distress. A&OX4. IV site patent and intact. Ureña draining yellow urine to gravity, Bed in lowest position and locked. Call light within reach. Will continue to monitor.
--- NOTE | 2020-03-11 07:59 | NUR ---
HAND-OFF: Report given to Coco MG.
[2020-03-11 08:00] VITALS: BP 109/68
--- NOTE | 2020-03-11 09:15 | NUR ---
SURGEON PARTNER NOTE DIANA filed APS report w/ Shavonne [phone] intake #[id number]. DIANA emailed SOC [phone].
[2020-03-11] MEDS: Heparin 5000 units/ml inj SUBQ SCH (10:15)
[2020-03-11] MEDS: Meropenem 1 GM in NS 55 ML IVPB SCH (10:15)
--- NOTE | 2020-03-11 11:54 | NUR ---
*-* INSURANCE *-* UPDATED CLINICALS HAVE BEEN FAXED TO: JAMAR GEORGE DELEGATED P: [phone] F: [phone] (FAX CLINICALS) & BS TRACKING ONLY/ DELEGATED TO JAMAR F: [phone] (FAX CLINICALS)
[2020-03-11 12:00] VITALS: BP 115/72
--- NOTE | 2020-03-11 12:06 | Urology Progress Note ---
Assessment/Plan Status: stable, progressing Assessment/Plan: 1. Urinary retention. 2. BPH. 3. Neurogenic bladder. 4. Hematuria. 5. Pyuria/UTI/colonized. 6. Proteinuria. 7. Renal insufficiency acute on chronic. 8. Questionable history of urethral stricture. 9. Renal cyst. 10. Sepsis. monitor clinically maintain le, last placed 02/24 by report hand irrigated and do PRN abx as ordered, per ID cont proscar cysto later plan is to go home today offered to exchanged le, pt declined will need to f/u with in-network urologist d/w nursing staff Subjective Allergies: Coded Allergies: No Known Allergies (Unverified , 02/24/20) Subjective all noted, looks comfortable, for DC today Objective Last 24 Hour Vital Signs Date Time Temp Pulse Resp B/P (MAP) Pulse Ox O2 Delivery O2 Flow Rate FiO2 03/11/20 09:00 Room Air 03/11/20 08:00 98.1 74 20 109/68 (82) 96 03/11/20 04:00 97.8 87 20 109/74 (86) 95 03/10/20 23:55 98.1 76 16 112/64 (80) 96 03/10/20 21:00 Room Air 03/10/20 20:00 98.0 82 17 105/70 (82) 96 03/10/20 16:00 97.8 85 18 101/64 (76) 94 Intake and Output 03/10/20 03/11/20 18:59 06:59 Intake Total 55 ml 55 ml Output Total 800 ml 1500 ml Balance -745 ml -1445 ml IV Total 55 ml 55 ml Output Urine Total 800 ml 1500 ml # Voids 1 # Bowel Movements 1 Microbiology Date/Time Source Procedure Growth Status 03/03/20 19:23 Blood Blood Culture - Final Escherichia Coli - Esbl Complete 03/08/20 17:20 Nasopharynx Coronavirus COVID-19 PCR (JEREMIAH) - Final Complete 03/03/20 21:08 Urine,Clean Catch Urine Culture - Final Escherichia Coli - Esbl Complete Current Medications Medications (Trade) Dose Ordered Sig/Eddi Route PRN Reason Start Time Stop Time Status Last Admin Dose Admin Acetaminophen (Tylenol) 650 mg Q4H PRN ORAL Pain Scale 1-3/T>100.5 03/04/20 13:00 6/12/20 12:59 03/08/20 18:16 Finasteride (Proscar) 5 mg DAILY ORAL 03/05/20 09:00 06/03/20 08:59 03/11/20 10:15 Heparin Sodium (Porcine) (Heparin 5000 units/ml) 5,000 units EVERY 12 HOURS SUBQ 03/04/20 09:00 04/18/20 08:59 03/11/20 10:15 Magnesium Hydroxide (Mom) 30 ml DAILYPRN PRN ORAL Constipation 03/03/20 22:30 04/02/20 22:29 Meropenem 1 gm/ Sodium Chloride 55 ml @ 110 mls/hr Q12HR IVPB 03/06/20 12:00 03/15/20 11:59 03/11/20 10:15 Ondansetron HCl (Zofran) 4 mg Q6H PRN IVP Nausea & Vomiting 03/03/20 22:30 04/02/20 22:29 Height (Feet): 5 Height (Inches): 6.00 Weight (Pounds): 122 Objective exam stable urine yellow, occasional debris renal u/s (03/04) noted Gibran Bullock MD March 11, 2020 12:06
--- NOTE | 2020-03-11 12:50 | NUR ---
CASE MANAGEMENT: REVIEW 03/10/20 SI: FAILURE TO THRIVE . GENERALIZED WEAKNESS . UTI 98.2 78 18 123/71 98% ON RA BUN/CREAT 30/1.5 IS: IV MEROPENEM BID TYLENOL PO Q4/PRN HEPARIN SQ BID PROSCAR PO QD \: 3E MED SURG UNIT DCP: HOME WHEN STABLE PLAN: Patient accepted to [facility]; patient accepted, and then declined to transfer. New dc plan: home with IV home health x2 days patient [facility]: [facility] provided [facility] Health services dc held by today no dc today Urology to clear patient CASE MANAGEMENT: REVIEW 03/11/20 SI: FAILURE TO THRIVE . GENERALIZED WEAKNESS . UTI 98.3 67 21 115/72 96% ON RA IS: IV MEROPENEM BID TYLENOL PO Q4/PRN HEPARIN SQ BID PROSCAR PO QD \: 3E MED SURG UNIT DCP: HOME WHEN STABLE PLAN: DC HOME WITH HOME HEALTH TODAY DC WITH [facility] CATH PER UROLOGY
--- NOTE | 2020-03-11 13:57 | Infectious Diseases Prog Note ---
Assessment/Plan Assessment/Plan A 1. E.coli sepsis 2. E.coli UTI 3. BPH 4. Acute renal failure improving P 1. Continue Meropenem X 1 day Subjective ROS Limited/Unobtainable: No Constitutional: Reports: no symptoms Respiratory: Reports: no symptoms Cardiovascular: Reports: no symptoms Gastrointestinal/Abdominal: Reports: no symptoms Genitourinary: Reports: no symptoms Allergies: Coded Allergies: No Known Allergies (Unverified , 02/24/20) Objective Vital Signs Last 24 Hour Vital Signs Date Time Temp Pulse Resp B/P (MAP) Pulse Ox O2 Delivery O2 Flow Rate FiO2 03/11/20 12:00 98.3 67 21 115/72 (86) 96 03/11/20 09:00 Room Air 03/11/20 08:00 98.1 74 20 109/68 (82) 96 03/11/20 04:00 97.8 87 20 109/74 (86) 95 03/10/20 23:55 98.1 76 16 112/64 (80) 96 03/10/20 21:00 Room Air 03/10/20 20:00 98.0 82 17 105/70 (82) 96 03/10/20 16:00 97.8 85 18 101/64 (76) 94 Height (Feet): 5 Height (Inches): 6.00 Weight (Pounds): 122 General Appearance: no acute distress HEENT: mucous membranes moist Respiratory/Chest: lungs clear Cardiovascular: normal rate Abdomen: soft, non tender Genitourinary: other - Ureña catheter Extremities: no edema Neurologic/Psychiatric: alert, oriented x 3, responsive Microbiology Date/Time Source Procedure Growth Status 03/08/20 17:20 Nasopharynx Coronavirus COVID-19 PCR (JEREMIAH) - Final Complete Current Medications Medications (Trade) Dose Ordered Sig/Eddi Route PRN Reason Start Time Stop Time Status Last Admin Dose Admin Acetaminophen (Tylenol) 650 mg Q4H PRN ORAL Pain Scale 1-3/T>100.5 03/04/20 13:00 04/02/20 12:59 03/08/20 18:16 Finasteride (Proscar) 5 mg DAILY ORAL 03/05/20 09:00 06/03/20 08:59 03/11/20 10:15 Heparin Sodium (Porcine) (Heparin 5000 units/ml) 5,000 units EVERY 12 HOURS SUBQ 03/04/20 09:00 04/18/20 08:59 03/11/20 10:15 Magnesium Hydroxide (Mom) 30 ml DAILYPRN PRN ORAL Constipation 03/03/20 22:30 04/02/20 22:29 Meropenem 1 gm/ Sodium Chloride 55 ml @ 110 mls/hr Q12HR IVPB 03/06/20 12:00 03/15/20 11:59 03/11/20 10:15 Ondansetron HCl (Zofran) 4 mg Q6H PRN IVP Nausea & Vomiting 03/03/20 22:30 04/02/20 22:29 Hector Hoyt MD March 11, 2020 13:57
--- NOTE | 2020-03-11 15:05 | NUR ---
NURSE NOTES: Pt in stable condition. Pt will be discharged with IV access for further IV Antibiotic therapy with Home health. Per , pt will go home with Ureña cath in. Pt aware. Provided discharge information and instructions. All belongings were checked with pt. ID band removed. Pt escorted to downstair and picked up by Taxi.
--- NOTE | 2020-03-11 15:07 | NUR ---
NURSE NOTES: - pt left the floor via w/c with no signs of distress or other issues. pt left via [employer] with voucher and given to the carrier driver. - Ureña cath changed to leg back prior to d/c.
--- NOTE | 2020-03-11 15:43 | General Progress Note ---
Assessment/Plan Problem List: (1) Bacteremia due to Gram-negative bacteria ICD Codes: R78.81 - Bacteremia SNOMED: 564747705360 (2) Toxic metabolic encephalopathy ICD Codes: G92 - Toxic encephalopathy SNOMED: 457637540 (3) Acute urinary retention ICD Codes: R33.8 - Other retention of urine SNOMED: 512313193 (4) Episode of generalized weakness ICD Codes: R53.1 - Weakness SNOMED: 82676626 (5) Failure to thrive SNOMED: 50769104 Status: stable, progressing Assessment/Plan: cont iv abx fro 2 more days encourage po monitor labs follow up cultures cont le and ID eval apperciated monitor renal fxn/labs dc planning home per pt/family will need home health Subjective ROS Limited/Unobtainable: No Constitutional: Reports: malaise, weakness HEENT: Reports: no symptoms Cardiovascular: Reports: no symptoms Respiratory: Reports: no symptoms Gastrointestinal/Abdominal: Reports: no symptoms Genitourinary: Reports: other - chronic le Neurologic/Psychiatric: Reports: anxiety, depressed Endocrine: Reports: no symptoms Hematologic/Lymphatic: Reports: no symptoms Allergies: Coded Allergies: No Known Allergies (Unverified , 02/24/20) All Systems: reviewed and negative except above Subjective The patient and the patient's family decided against going to a shelter facility. Discharge held yesterday. Home health ordered. Patient wishes to go home. Objective Last 24 Hour Vital Signs Date Time Temp Pulse Resp B/P (MAP) Pulse Ox O2 Delivery O2 Flow Rate FiO2 03/11/20 12:00 98.3 67 21 115/72 (86) 96 03/11/20 09:00 Room Air 03/11/20 08:00 98.1 74 20 109/68 (82) 96 03/11/20 04:00 97.8 87 20 109/74 (86) 95 03/10/20 23:55 98.1 76 16 112/64 (80) 96 03/10/20 21:00 Room Air 03/10/20 20:00 98.0 82 17 105/70 (82) 96 03/10/20 16:00 97.8 85 18 101/64 (76) 94 Intake and Output 03/10/20 03/11/20 19:00 07:00 Intake Total 55 ml 55 ml Output Total 800 ml 1500 ml Balance -745 ml -1445 ml IV Total 55 ml 55 ml Output Urine Total 800 ml 1500 ml # Voids 1 # Bowel Movements 1 Height (Feet): 5 Height (Inches): 6.00 Weight (Pounds): 122 Objective General Appearance: WD/WN, alert, less confused. thin EENT: PERRL/EOMI, normal ENT inspection Neck: non-tender, normal alignment, supple Cardiovascular: normal peripheral pulses, normal rate, regular rhythm Respiratory/Chest: chest wall non-tender, lungs clear, normal breath sounds, no respiratory distress, no accessory muscle use Abdomen: normal bowel sounds, non tender, soft, no organomegaly Edema: no edema noted Arm (L), no edema noted Arm (R), no edema noted Leg (L), no edema noted Leg (R), no edema noted Pedal (L), no edema noted Pedal (R), no edema noted Generalized Neurologic: hydrometeorologist II-XII grossly normal, alert, disoriented Skin: normal pigmentation Roque Monroe MD March 11, 2020 15:43
--- NOTE | 2020-03-11 15:44 | NUR ---
P.T Weekly Progress Notes: Pt is being in seen for skilled P.T services. Pt responding well with tx. Pt demonstrated improved strength and activity tolerance as manifested by improved time efficiency and increased mobility independence. Pt is now independent in bed mobilities and currently requires SBA/CGA X 1 for transfers and gait/ambulation activities using the FWW. Will continue to with POC with progression of activities. Continue to recommend home P.T with 24 hr CG assist or SNF for short term rehab. Addendum: 03/11/20 at 1552 by NAS MC PT Amended: Links added.
--- NOTE | 2020-03-11 16:03 | Surgery Progress Note ---
Surgery Progress Note Subjective Symptoms: improved, tolerating diet, voiding well, passing flatus, pain decreased Objective Last 24 Hour Vital Signs Date Time Temp Pulse Resp B/P (MAP) Pulse Ox O2 Delivery O2 Flow Rate FiO2 03/11/20 12:00 98.3 67 21 115/72 (86) 96 03/11/20 09:00 Room Air 03/11/20 08:00 98.1 74 20 109/68 (82) 96 03/11/20 04:00 97.8 87 20 109/74 (86) 95 03/10/20 23:55 98.1 76 16 112/64 (80) 96 03/10/20 21:00 Room Air 03/10/20 20:00 98.0 82 17 105/70 (82) 96 I&O Intake and Output 03/10/20 03/11/20 19:00 07:00 Intake Total 55 ml 55 ml Output Total 800 ml 1500 ml Balance -745 ml -1445 ml IV Total 55 ml 55 ml Output Urine Total 800 ml 1500 ml # Voids 1 # Bowel Movements 1 Dressing: dry Wound: clean Cardiovascular: RSR Respiratory: clear Abdomen: soft, non-tender, present bowel sounds Extremities: no edema, no tenderness, no cyanosis Plan Problems: (1) Incontinence associated dermatitis Assessment & Plan: Patient identified to have consulted dermatitis in the sacral buttock area. Patient states that occasionally has incontinence and does not realize it. He does not have too much care when wiping and instructed in care plan given to patient at bedside. He is compliant and fairly reasonable. He is pending discharge planning. He is otherwise comfortable. Will monitor closely and provide instruction in care for patient. Improving since admission. Patient turning as possible sitting up in chair ambulatory when needed let nursing staff know when BM all her urine to identify and help with care. Overall improving. DC planning. (2) Episode of generalized weakness (3) Failure to thrive Assessment & Plan: DAILY ESTIMATED NEEDS: Needs based on Sepsis/ 56.5kg 25-30 kcals/kg 0875-6881 total kcals 1-2 g protein/kg 56-112 g total protein 25-30 mL/kg 2825-4005 total fluid mLs NUTRITION DIAGNOSIS: * Altered nutrition related lab values R/T hyperglycemia, clinical condition as evidenced by elev BGs ([phone]) CURRENT DIET:REGULAR, kosher PO DIET RECOMMENDATIONS: Liberalized REGULAR, KOSHER (Texture as tolerated) ADDITIONAL RECOMMENDATIONS: * Calibrated bedscale wt for accurate CBW * Check A1C: elev BGs * 8oz regular milk TID w/ meals (150kcal, 8g protein) -> pt refused HPN like Ensure/Glucerna * Monitor BGs, need for carb controlled diet/ hypoglycemics * Monitor for continued improved PO intake (admitted w/ FTT dx) * WC eval for sacral wound photo * Add MVI x 1 (4) Acute urinary retention (5) Bacteremia due to Gram-negative bacteria Assessment & Plan: ESBL likely urine ulikely related to wounds thank you (6) Toxic metabolic encephalopathy Marino Yu March 11, 2020 16:03
--- NOTE | 2020-03-12 10:19 | NUR ---
*-* INSURANCE *-* UPDATED CLINICALS HAVE BEEN FAXED TO: [facility] P: [phone] F: [phone] (FAX CLINICALS) & BS TRACKING ONLY/ DELEGATED TO [facility] F: [phone] (FAX CLINICALS) Addendum: 03/12/20 at 1019 by JOSSUE ELIZABETH CM discharge instruction faxed no discharge summary i the system, Addendum: 03/12/20 at 1052 by JOSSUE ELIZABETH CM NO DISCHARGE SUMMARY IN THE SYSTEM UNABLE TO FAX
--- NOTE | 2020-03-12 13:43 | NUR ---
DISCHARGE PLANNED PATIENT DISCHARGE TO HOME WITH HOME HEALTH PATIENT REFERRED TO KATHY BRIZUELA T: [phone] KATHY BRIZUELA WILL PROVIDE HOME HEALTH NURSE [facility] T: [phone] CM CONFIRMED WITH PATIENT; SERVICE TODAY AND COMPLETE PATIENT DOING WELL AND IS ABOUT TO TAKE A NAP
--- NOTE | 2020-03-12 13:45 | NUR ---
POST DC NOTE SW received a call from APS DIANA Mathtew [phone] for details.
--- NOTE | 2020-03-16 09:47 | Discharge Summary ---
Discharge Summary Discharge Summary _ DATE OF ADMISSION: 03/03/2020 DATE OF DISCHARGE: 03/11/2020 DISCHARGED BY: Dr. 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 Patient reported that he was unable to walk around the house. His appetite decreased. He denied any fevers. He reported thirst. Upon evaluation patient was febrile 100.1 . Laboratory work-up revealed no leukocytosis ,stable hemoglobin, hematocrit ,and platelet count. BUN 55, creatinine 2.1. Lactic acid 3.0. Glucose 206. AST 73, ALT 46. Troponin 0.007. Albumin 2.9. Urinalysis revealed evidence of urinary tract infection. Chest x-ray revealed no acute cardiopulmonary pathology Patient subsequently pancultured, received IV fluids and empiric antibiotics, and admitted for further management. CONSULTANTS: ID specialist Dr. Ag surgery Dr. Yu urologist Dr. Bullock [facility] COURSE: Patient admitted to medical surgical floor . Patient started on empiric antibiotic as per ID specialist recommendation. IV fluids continued with close monitoring of renal parameters and electrolytes. Nephrotoxic's were avoided. Renal ultrasound revealed no evidence of obstructive uropathy. Cortical thickness and echogenicity were within normal limits bilaterally. With IV hydration creatinine from 2.1 down to 1.5, BUN from 55 down to 30. Acute kidney injury was most likely due to dehydration , superimposed on chronic renal kidney disease with glomerular filtration rate being between 38 and 52. Blood culture revealed E. coli ESBL. Urine culture revealed E. coli ESBL. Bacteremia was most likely due to UTI. Antibiotic regimen optimized as per ID specialist recommendation. SARS-COV 2 by PCR from 03/08 came back not detected. ID specialist recommended to continue antibiotic at home for 2 days to complete the course. Home health was arranged. Abdominal ultrasound revealed cholelithiasis. No sonographic evidence to suggest acute cholecystitis. Normal liver in size and contour. No focal hepatic mass lesion was appreciated. Patent main portal vein with normal directional flow . Surgeon followed. LFT trending down. Urologist recommended to maintain Ureña catheter; last one was placed on 02/24. Hand irrigate as needed. Proscar was continued. Urologist recommended consider cystoscopy later. Urologist offered to exchange Ureña catheter , but patient declined at this time. Patient will need to follow-up with his in network urologist as outpatient. Patient was working with physical therapist. Fall precaution maintained. Patient was able to ambulate. education and outreach coordinator recommendation implemented in plan of care. Patient clinically stabilized and was ready for discharge home with home health services. FINAL DIAGNOSES: E. coli ESBL sepsis secondary to UTI E. 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 BPH Neurogenic bladder Cholelithiasis Episode of generalized weakness Failure to thrive DISCHARGE MEDICATIONS: See Medication Reconciliation list. DISCHARGE INSTRUCTIONS: Patient was discharged home with home health services. Follow up with primary care provider in one week. I have been assigned to dictate discharge summary for this account. I was not involved in the patient's management. Celsa Mccurdy NP March 16, 2020 09:46
--- NOTE | 2020-03-16 13:52 | NUR ---
*-* INSURANCE *-* DISCHARGE SUMMARY HAS BEEN FAXED TO: [facility] P: [phone] F: [phone] (FAX CLINICALS) & BS TRACKING ONLY/ DELEGATED TO JAMAR F: [phone] (FAX CLINICALS)
== END 2020-03-11 15:00 | disposition home health service (06) | DRG 871 ==
LOC: EDBD 19:01 → EMR 19:19 → 3E 21:32 → EDBEDREQ 22:17
DX: A41.51 Sepsis due to Escherichia coli [E. coli] (principal); G92 Toxic encephalopathy; N39.0 Urinary tract infection, site not specified; N17.9 Acute kidney failure, unspecified; Z16.12 Extended spectrum beta lactamase (ESBL) resistance; E86.0 Dehydration; N40.1 Benign prostatic hyperplasia with lower urinary tract symptoms; R33.8 Other retention of urine; N31.9 Neuromuscular dysfunction of bladder, unspecified; R31.9 Hematuria, unspecified; R32 Unspecified urinary incontinence; L30.8 Other specified dermatitis; R62.7 Adult failure to thrive; N28.1 Cyst of kidney, acquired; K80.20 Calculus of gallbladder without cholecystitis without obstruction; N18.9 Chronic kidney disease, unspecified
CPT/HCPCS: 36415; 71045; 76700; 76770; 80048; 80053; 81003; 82550; 82553; 83605; 83880; 84484; 85025; 87040; 87086; 87181; 87635; 93005; 93306; 96361; 96365; 99285; J7030; J8499